=== PATIENT | female | born 1995 | race Caucasian/White ===

== ENCOUNTER → 2019-03-02 14:59 | Outpatient (CLI) | payer OTHER, MEDICAID, SELFPAY ==
[2019-03-02 15:33] LABS: Add Manual Diff / Slide Review NO; Basophils Absolute Auto 0 /uL (0-100); Basophils Percent Auto 0.4 % (0-2); Eosinophils Absolute Auto 100 /uL (0-450); Hematocrit 42.4 % (36-46); Hemoglobin 14.5 g/dL (12.0-16.0); Lymphocytes Absolute Auto 1500 /uL (1100-4500); Lymphocytes Percent Auto 24.2 % (25-40); Mean Corpuscular HGB Conc 34.2 % (30-36); Mean Corpuscular Hemoglobin 29.7 PG (26-34); Mean Corpuscular Volume 86.9 fL (80-100); Monocytes Absolute Auto 400 /uL (0-900); Neutrophils Absolute Auto 4200 /uL (1500-7000); Neutrophils Percent Auto 67.4 % (50-75); Platelet Count 197 X10^3/uL (150-400); Red Blood Cell Count 4.88 X10^6/uL (4.0-5.2); Red Cell Distribution Width 13.4 % (11.6-14.8); White Blood Cell Count 6.2 X10^3/uL (4.5-11.0)
[2019-03-02 15:46] LABS: Appearance Urine UA CLEAR; Bilirubin Urine UA NEGATIVE (NEGATIVE); Color Urine UA YELLOW; Glucose Urine UA NEGATIVE (Negative); Ketones Urine UA NEGATIVE (NEGATIVE); Leukocyte Esterase Urine UA NEGATIVE (NEGATIVE); Nitrite Urine UA NEGATIVE (Negative); Occult Blood Urine UA NEGATIVE (Negative); Protein Urine UA NEGATIVE (Negative); Urobilinogen Urine UA 0.2 E.U./dL (0.2)
[2019-03-02 17:00] LABS: Hepatitis B Surface Antigen NEGATIVE s/c (NEGATIVE); Rubella Antibody IgG 33.9 IU/mL (>15)
[2019-03-02 17:16] LABS: HIV 1 & 2 Ab/Ag 4th Gen Combo NEGATIVE (NEGATIVE); Hep C Virus Ab w/Reflex Quant NEGATIVE s/c (NEGATIVE)
[2019-03-05 23:41] LABS: RPR Screen Nonreactive (Nonreactive)
== END ==
PROVIDERS: Visit Provider Obstetrics & Gynecology
DX: Z34.91 Encounter for supervision of normal pregnancy, unspecified, first trimester (principal); Z3A.08 8 weeks gestation of pregnancy; R39.89 Other symptoms and signs involving the genitourinary system
CPT/HCPCS: 36415; 80055; 81003; 86787; 86803; 86850; 86900; 86901; 87389; 87480; 87510; 87660

== ENCOUNTER → 2019-04-20 11:30 | Outpatient (CLI) | payer OTHER, MEDICAID, SELFPAY ==
[2019-04-23 17:31] LABS: AFP, Serum 52.2 ng/mL; Brief History NTD NG; Calc Gestational Age 15.4; Cigarette Smoker NO; Donated Egg NO; Donor Egg Age NO; Estriol, Free 0.81 ng/mL; Inhibin A, Dimeric 178 pg/mL; Inhibin A, MoM 1.05; Maternal Weight 165 lbs; Number of Fetuses 1; Previous Pregnancy Down Syndro NO; hCG, MoM 0.99; hCG, Serum 36.6 IU/mL
== END ==
PROVIDERS: Visit Provider Obstetrics & Gynecology
DX: Z34.82 Encounter for supervision of other normal pregnancy, second trimester (principal)
CPT/HCPCS: 36415; 82105; 82677; 84702; 86336; 87077; 87086

== ENCOUNTER → 2019-05-30 12:23 | Outpatient (CLI) | payer OTHER, SELFPAY | PROVIDERS: Visit Provider Physician Assistant | DX: J02.9 Acute pharyngitis, unspecified (principal) | CPT/HCPCS: 87070; 87077; 87185 ==

== ENCOUNTER → 2019-05-31 11:31 | Outpatient (CLI) | payer OTHER, SELFPAY ==
--- NOTE | 2019-05-31 11:32 | DI.US.S_ITS ---
PROCEDURE: US OB >= 14 WEEKS FETUS INDICATIONS: 20 week anatomy scan OUTSIDE/PRIOR DATING DATA: Last menstrual period (LMP): Unknown. LMP-based estimated date of delivery (RANDI): Unknown. First dating scan (date and location): 03/02/19. Estimated date of delivery (RANDI) from first dating scan: 10/13/19. TECHNIQUE: Real-time scanning was performed of the fetus, with image documentation and biometric measurements. Endovaginal scanning: Not performed COMPARISON: [facility], , OB <= 14 WEEKS FETUS, 03/02/2019, 14:28. [facility], , OB >= 14 WEEKS FETUS, 04/20/2019, 11:10. FINDINGS: General: A single living intrauterine gestation is present. Presentation: Vertex. Placenta: Placental position is posterior, without previa. Amniotic fluid index: 18.7 cm, normal range is 5-24 cm. heart rate: 155 beats per minute. Maternal cervical canal: 3.9 cm long. Normal lower limit is 2.5 cm. biometrics: Biparietal diameter: 5.7 cm, 23 weeks 4 days Head circumference: 20.6 cm, 22 weeks 5 days Abdominal circumference: 17.1 cm, 22 weeks zero days Femur length: 3.8 cm, 22 weeks zero days Estimated gestational age from initial scan: 20 weeks 5 days Composite gestational age from present scan: 22 weeks 3 days Estimated weight and percentile: 480 g, 98th percentile Measurement variability for biometric dating: +/- 7 days from 14 weeks to 15 weeks 6 days gestation, +/- 10 days from 16 weeks to 21 weeks 6 days gestation, +/- 2 weeks from 22 weeks to 27 weeks 6 days gestation, +/- 3 weeks for 28 weeks gestation or later. weight reference: 4500 g or EFW >90/95% is considered macrosomia or large for gestational age. EFW <10% is small for gestational age. EFW 5% or less is considered intra-uterine growth restriction. Anatomic survey: Neuro: Ventricles are non-dilated at less than 10 mm. Cisterna magna is normal at 3-11 mm. Cerebellum is normal in size and morphology. Nuchal skin fold: Normal at less than 6 mm between 14-21 weeks gestational age. Face: Nose and lips, facial profile are normal. Spine: No evidence for spina bifida. Heart: 4-chambered heart is present, with normal ventricular outflow tracts. Diaphragm: Diaphragm is intact. Stomach: Left-sided stomach is present. Kidneys: No hydronephrosis. Normal is less than 5 mm in 2nd trimester, less than 7 mm in 3rd trimester. Cord: 3-vessel cord has orthotopic insertion. Bladder: Normal in size. Extremities: All 4 extremities identified. IMPRESSION: Single living intrauterine fetus in a vertex presentation demonstrating greater than expected interval growth. Estimated weight at the 98th percentile. If clinically warranted, continued growth assessment with followup 3-4 week ultrasound could be performed Normal anatomic survey Dictated by: Urban Whaley M.D. on 05/31/2019 at 13:37 Approved by: Urban Whaley M.D. on 05/31/2019 at 13:52
== END ==
PROVIDERS: Referring Provider Obstetrics & Gynecology; Visit Provider Obstetrics & Gynecology
DX: Z34.82 Encounter for supervision of other normal pregnancy, second trimester (principal); Z3A.22 22 weeks gestation of pregnancy
CPT/HCPCS: 76811

== ENCOUNTER → 2019-06-24 11:20 | Outpatient (CLI) | payer OTHER, SELFPAY ==
--- NOTE | 2019-06-24 11:22 | DI.US.S_ITS ---
PROCEDURE: US OB FOLLOW UP INDICATIONS: GROWTH CHECK, PLEASE ASSESS CORD INSERTION OUTSIDE/PRIOR DATING DATA: Last menstrual period (LMP): Unknown. LMP-based estimated date of delivery (RANDI): Unknown. First dating scan (date and location): 03/02/2019 [facility]. Estimated date of delivery (RANDI) from first dating scan: 10/13/2019. TECHNIQUE: Real-time scanning was performed of the fetus, with image documentation and biometric measurements. Endovaginal scanning: Not performed COMPARISON: [facility], OB >= 14 WEEKS FETUS, 05/31/2019, 11:40. FINDINGS: General: A single living intrauterine gestation is present. Presentation: Vertex. Placenta: Placental position is posterior, without previa. Amniotic fluid index: 20 cm, normal range is 5-24 cm. heart rate: 157 beats per minute. Maternal cervical canal: 3.9 cm long. Normal lower limit is 2.5 cm. biometrics: Biparietal diameter: 6.9 cm. 27 weeks 6 days. Head circumference: 25.3 cm. 27 weeks 3 days. Abdominal circumference: 22.4 cm. 26 weeks 6 days. Femur length: 4.8 cm. 26 weeks 1 day. Estimated gestational age from initial scan: 24 weeks 1 day Composite gestational age from present scan: 26 weeks 6 days Estimated weight and percentile: 966 g. Greater than 99th percentile. Measurement variability for biometric dating: +/- 7 days from 14 weeks to 15 weeks 6 days gestation, +/- 10 days from 16 weeks to 21 weeks 6 days gestation, +/- 2 weeks from 22 weeks to 27 weeks 6 days gestation, +/- 3 weeks for 28 weeks gestation or later. weight reference: 4500 g or EFW >90/95% is considered macrosomia or large for gestational age. EFW <10% is small for gestational age. EFW 5% or less is considered intra-uterine growth restriction. Other: Cord insertion is normal. IMPRESSION: 1. Andrea living intrauterine at 26 weeks 6 days based on today's ultrasound. This is greater than +/ -2 weeks variability compared to prior ultrasound and is disconcordant. There is interval growth. Fetus is greater than the 99th percentile for weight. 2. Normal placenta and amniotic fluid. 3. Cord insertion is normal. Dictated by: Rafael Tse M.D. on 06/24/2019 at 12:21 Approved by: Rafael Tse M.D. on 06/24/2019 at 12:39
== END ==
PROVIDERS: Referring Provider Obstetrics & Gynecology; Visit Provider Obstetrics & Gynecology
DX: O28.3 Abnormal ultrasonic finding on antenatal screening of mother (principal); Z3A.26 26 weeks gestation of pregnancy
CPT/HCPCS: 76816

== ENCOUNTER → 2019-07-08 08:34 | Outpatient (CLI) | payer OTHER, MEDICAID, SELFPAY ==
[2019-07-08 11:23] LABS: Hematocrit 31.8 % (36-46)
[2019-07-08 11:40] LABS: GTT (PREG) 1 Hour PP 50gm Dose 95 mg/dL (76-139)
== END ==
PROVIDERS: PCP Obstetrics & Gynecology; Referring Provider Obstetrics & Gynecology; Visit Provider Obstetrics & Gynecology
DX: Z34.82 Encounter for supervision of other normal pregnancy, second trimester (principal); Z3A.26 26 weeks gestation of pregnancy
CPT/HCPCS: 36415; 82950; 85014; 85018

== ENCOUNTER → 2019-07-15 14:50 | Outpatient (CLI) | payer OTHER, MEDICAID, SELFPAY ==
--- NOTE | 2019-07-15 14:52 | DI.US.S_ITS ---
PROCEDURE: OB LIMITED INDICATIONS: GROWTH CHECK OUTSIDE/PRIOR DATING DATA: Last menstrual period (LMP): Unknown. LMP-based estimated date of delivery (RANDI): Unknown. First dating scan (date and location): 03/02/2019 Estimated date of delivery (RANDI) from first dating scan: 10/13/2019. TECHNIQUE: Real-time scanning was performed of the fetus, with image documentation and biometric measurements. COMPARISON: [facility] OB FOLLOW UP, 06/24/2019, 11:36. [facility] OB >= 14 WEEKS FETUS, 05/31/2019, 11:40. [facility] OB >= 14 WEEKS FETUS, 04/20/2019, 11:10. [facility] OB <= 14 WEEKS FETUS, 03/02/2019, 14:28. FINDINGS: General: A single live intrauterine gestation is present. Presentation: Vertex. Placenta: Placental position is posterior, without previa. Amniotic fluid index: 20.3 cm, normal range is 5-24 cm. heart rate: 153 beats per minute. Maternal cervical canal: 4.8 cm long. Normal lower limit is 2.5 cm. biometrics: Biparietal diameter: 7.7 cm equals 31 weeks 0 days Head circumference: 28.4 cm equals 30 weeks 2 days Abdominal circumference: 26.2 cm equals 29 weeks 1 day Femur length: 5.5 cm equals 29 weeks 4 days Estimated gestational age from initial scan: 27 weeks 1 day Composite gestational age from present scan: 30 weeks 2 days Estimated weight and percentile: 1505 g, greater than 99 Measurement variability for biometric dating: +/- 7 days from 14 weeks to 15 weeks 6 days gestation, +/- 10 days from 16 weeks to 21 weeks 6 days gestation, +/- 2 weeks from 22 weeks to 27 weeks 6 days gestation, +/- 3 weeks for 28 weeks gestation or later. weight reference: 4500 g or EFW >90/95% is considered macrosomia or large for gestational age. EFW <10% is small for gestational age. EFW 5% or less is considered intra-uterine growth restriction. Other: Not applicable. IMPRESSION: The fetus is larger than expected for the estimated gestational age, and is at the greater than 99th percentile. Please correlate with potential development of shahbaz macrosomia. Dictated by: Israel Abarca M.D. on 07/15/2019 at 16:15 Approved by: Israel Abarca M.D. on 07/15/2019 at 16:18
== END ==
PROVIDERS: PCP Obstetrics & Gynecology; Referring Provider Obstetrics & Gynecology; Visit Provider Obstetrics & Gynecology
DX: O36.63X0 Maternal care for excessive fetal growth, third trimester, not applicable or unspecified (principal); Z3A.30 30 weeks gestation of pregnancy
CPT/HCPCS: 76815

== ENCOUNTER 2019-07-15 15:39 | Observation (INO) | payer OTHER, MEDICAID, SELFPAY ==
[2019-07-15 17:38] LABS: RBC Urine None Seen (0-5/HPF)
[2019-07-15 17:40] LABS: Appearance Urine UA CLEAR; Bilirubin Urine UA NEGATIVE (NEGATIVE); Color Urine UA YELLOW; Glucose Urine UA NEGATIVE (Negative); Ketones Urine UA NEGATIVE (NEGATIVE); Leukocyte Esterase Urine UA NEGATIVE (NEGATIVE); Nitrite Urine UA NEGATIVE (Negative); Occult Blood Urine UA NEGATIVE (Negative); Protein Urine UA NEGATIVE (Negative)
[2019-07-15 17:42] LABS: pH Urine UA 7.5 (4.5-8.0)
[2019-07-15 17:53] LABS: Amorphous Sediment Urine 2+; Bacteria Urine Few (2-10); Squamous Epithelial Cell Urine 1-5 /HPF (0-5/HPF); WBC Urine 1-5/HPF (0-5/HPF)
[2019-07-15 17:54] LABS: Culture Indicated Urine Cult Not Indicated
[2019-07-15 18:11] LABS: Fetal Fibronectin Negative
--- NOTE | 2019-07-15 18:37 | P.TNLD_ITS ---
Visit Information Visit Information Date of evaluation: 07/15/19 Primary OB Provider: Patrizia Quintanilla On-call OB Provider: Tory Fletcher Reason for Evaluation: Yes pre-term labor Comments/Additional reasons for admission: 23-year-old female presented due to feeling frequent contractions. She felt onset of occasional contraction yesterday, then last night had contractions every few minutes which were uncomfortable. She notice continued contractions today which were mild but frequent and came to be evaluated after her scheduled OB ultrasound today. She had an OB ultrasound for size greater than dates with last ultrasound showing LGA infant. Treated for yeast infection 2 weeks ago after antibiotics for sinus infection Review of systems: Reports twice had a small wet area on underwear twice today, ? Leakage of fluid. No vaginal itching, vaginal bleeding, dysuria, urinary urgency or increased frequency. Reports good movement. Vital Signs Vital Signs: Afebrile BP 112/63 pulse 81 [facility] Medical History (Updated 07/15/19 @ 19:06 by Tory Fletcher MD) Abnormal Pap smear of cervix (Inactive ~2017) Anxiety (Chronic ~2018) Depression (Chronic ~2018) Migraines (Chronic ~2018) Tachycardia (Acute ~2018) URI (upper respiratory infection) (Acute) Surgical History (Updated 03/08/19 @ 21:35 by Ivanna Jefferson) Hx of LASIK (Resolved ~10/2017) Family History (Updated 03/08/19 @ 21:40 by Ivanna Jefferson) Father Congenital heart defect Hypertension Mother Hypertension Brother Diabetes mellitus Grandfather Bone cancer Grandmother Cancer Grandfather Diabetes mellitus History of heart disease Hyperlipidemia Stroke Grandmother Diabetes mellitus History of heart disease Hyperlipidemia Hypertension Stroke Social History Smoking Status: Never smoker Exam Vital Signs (past 8 hours): Afebrile. BP 112/63. Pulse 81 Narrative Exam Narrative: General: Well-appearing female. Does not appear uncomfortable. Abdomen gravid, nontender Normal external genitalia, some yellowish watery discharge noted at the introitus. Speculum placed. Vagina with some watery yellow discharge, with some clumpy areas come suspicious for yeast. Sample taken for wet prep and for AmniSure Cervix visibly 0/along. fibronectin collected. Subsequent digital cervical exam confirms closed/long Wet prep by me showed +hyphae, no clue cells, no Trichomonas Ob growth ultrasound in Radiology today showed EFW 99%, ROSY 20. Cervix was greater than 4.8 cm Objective Labs Labs: Laboratory Results - last 24 hr 07/15/19 07/15/19 17:05 17:40 Urine Color Yellow Urine Appearance Clear Urine pH 7.5 Ur Specific [place] 1.010 Urine Protein Negative Urine Glucose (UA) Negative Urine Ketones Negative Urine Occult Blood Negative Urine Nitrate Negative Urine Bilirubin Negative Urine Urobilinogen 1.0 Ur Leukocyte Esterase Negative Urine RBC None seen Urine WBC 1-5/hpf Ur Squamous Epith Cells 1-5 /hpf Amorphous Sediment 2+ Urine Bacteria Few (2-10) H Ur Culture Indicated? Cult not indicated Fibronectin Negative Evaluation Evaluation Laboratory results: Laboratory Tests 07/15/19 07/15/19 17:05 17:40 Urine Color Yellow Urine Appearance Clear Urine pH 7.5 Ur Specific [place] 1.010 Urine Protein Negative Urine Glucose (UA) Negative Urine Ketones Negative Urine Occult Blood Negative Urine Nitrate Negative Urine Bilirubin Negative Urine Urobilinogen 1.0 Ur Leukocyte Esterase Negative Urine RBC None seen Urine WBC 1-5/hpf Ur Squamous Epith Cells 1-5 /hpf Amorphous Sediment 2+ Urine Bacteria Few (2-10) H Ur Culture Indicated? Cult not indicated Fibronectin Negative Diagnosis, Plan/Disposition Final Diagnosis (1) uterine contractions in second trimester, antepartum: Current Visit: Yes Status: Acute Problem details: contractions without evidence of labor. Contractions not treated since no cervical change and both cervical length and negative affect them are reassuring for likely no labor Urine sent for urine culture due to few bacteria seen, otherwise was negative Rx Terazol 3 for yeast Plan/Disposition Plan: Discharge home. Keep scheduled follow-up appointment in 4 days Instructed to call for regular stronger contractions, since current contractions are not causing cervical change for her. Other routine labor pr ecautions given. OB Disposition: home
== END 2019-07-15 18:55 | disposition home or self-care (01) ==
PROVIDERS: Obstetrics & Gynecology; Admitting Provider Obstetrics & Gynecology; PCP Obstetrics & Gynecology; Referring Provider Obstetrics & Gynecology; Visit Provider Obstetrics & Gynecology
DX: O47.02 False labor before 37 completed weeks of gestation, second trimester (principal); O36.63X0 Maternal care for excessive fetal growth, third trimester, not applicable or unspecified; N89.8 Other specified noninflammatory disorders of vagina; Z3A.27 27 weeks gestation of pregnancy
CPT/HCPCS: 59025; 59050; 76815; 81001; 82731; 84112; 87086; G0378; G0379

== ENCOUNTER 2019-08-09 14:03 | Inpatient (IN) | payer OTHER, MEDICAID, SELFPAY ==
[2019-08-09 14:16] VITALS: BP 118/70; PULSE 96; RESP 22; TEMP 36.4; O2SAT 100
--- NOTE | 2019-08-09 15:16 | PC.NURSE ---
sent by primary, [employer] to examine. will confer with primary, poss have ob come to evaluate
[2019-08-09 15:27] LABS: RBC Urine None Seen (0-5/HPF)
--- NOTE | 2019-08-09 15:32 | DI.RAD.S_ITS ---
PROCEDURE: XR CHEST 1V INDICATIONS: soa TECHNIQUE: One view of the chest was acquired. COMPARISON: None. FINDINGS: Surgical changes and devices: None. Lungs and pleura: Lungs are clear. No pleural effusions or pneumothorax. Mediastinum: Mediastinal contours appear normal. Heart size is normal. Bones and chest wall: No suspicious bony lesions. Overlying soft tissues appear unremarkable. IMPRESSION: Portable chest within normal limits. Dictated by: Israel Abarca M.D. on 08/09/2019 at 15:03 Approved by: Israel Abarca M.D. on 08/09/2019 at 15:04
--- NOTE | 2019-08-09 15:33 | PC.NURSE ---
abd shield for cxr
[2019-08-09 15:36] LABS: Amorphous Sediment Urine 2+; Bacteria Urine Few (2-10); Culture Indicated Urine Cult Not Indicated; Squamous Epithelial Cell Urine 0-1 /HPF (0-5/HPF); WBC Urine 0-1/HPF (0-5/HPF)
--- NOTE | 2019-08-09 16:16 | PC.NURSE ---
ob here to do non stress test.
[2019-08-09 16:26] VITALS: BP 106/60; PULSE 89; RESP 20; O2SAT 100
[2019-08-09 17:02] LABS: Add Manual Diff / Slide Review NO; Basophils Absolute Auto 0 /uL (0-100); Basophils Percent Auto 0.2 % (0-2); Eosinophils Absolute Auto 100 /uL (0-450); Eosinophils Percent Auto 0.7 % (2-4); Hemoglobin 11.5 g/dL (12.0-16.0); Lymphocytes Absolute Auto 1900 /uL (1100-4500); Lymphocytes Percent Auto 21.2 % (25-40); Mean Corpuscular HGB Conc 34.9 % (30-36); Mean Corpuscular Hemoglobin 29.5 PG (26-34); Mean Corpuscular Volume 84.7 fL (80-100); Monocytes Absolute Auto 500 /uL (0-900); Neutrophils Absolute Auto 6300 /uL (1500-7000); Neutrophils Percent Auto 71.9 % (50-75); Platelet Count 238 X10^3/uL (150-400); Red Cell Distribution Width 13.3 % (11.6-14.8); White Blood Cell Count 8.8 X10^3/uL (4.5-11.0)
[2019-08-09 17:14] LABS: INR 1.2 (0.9-1.3); Prothrombin Time 13.3 SECONDS (10.1-12.7)
[2019-08-09 17:17] LABS: PTT Partial Thromboplastin Tim 25 SECONDS (26.4-36.2)
[2019-08-09 17:29] LABS: Alanine Aminotransferase 10 IU/L (<35); Albumin 3.5 g/dL (3.5-5.0); Albumin Globulin Ratio 1.1 (1.0-2.8); Alkaline Phosphatase 97 U/L (38-126); Aspartate Aminotransferase 21 IU/L (14-36); Bilirubin Total 0.5 mg/dL (0.2-1.3); Blood Urea Nitrogen 4 mg/dL (7-17); Calcium 9.2 mg/dL (8.4-10.2); Carbon Dioxide 23 mmol/L (22-32); Chloride 106 mmol/L (98-107); Creatine Kinase 70 U/L (30-135); Estimated Glomerular Filt Rate > 60.0 mL/min (>60); Globulin 3.1 g/dL (1.7-4.1); Glucose 99 mg/dL (70-100); HEMOLYSIS < 15 (0-50); Lipase 61 U/L (23-300); Sodium 136 mmol/L (137-145); Total Protein 6.6 g/dL (6.3-8.2)
[2019-08-09 17:41] LABS: NT-proBNP (BNP-Adult 18+) 23 pg/mL (<125); Troponin I < 0.012 ng/mL (0.01-0.034)
[2019-08-09 17:56] LABS: Potassium 2.6 mmol/L (3.4-5.1)
[2019-08-09 18:16] LABS: Magnesium 1.7 mg/dL (1.6-2.3)
[2019-08-09] MEDS: KCL 20 MEQ IN NS 1,000 ML 500 MEQ IV (18:25)
[2019-08-09] MEDS: POTASSIUM CHLORIDE 20 MEQ TAB 40 MEQ PO (18:25)
--- NOTE | 2019-08-09 19:29 | ED.SOB ---
HPI - SOB/Dyspnea <ELISABETH Trimble - Last Filed: 08/09/19 23:48> General Chief Complaint: Shortness of Breath/Dyspnea Stated Complaint: Sent By Doctor To get Covid Testing. Time Seen by Provider: 08/09/19 14:09 Source: patient Mode of arrival: Ambulatory Limitations: no limitations History of Present Illness HPI Narrative: This is 23 year female, nonsmoker, who presents to ED with chief complain of short of breath for last several weeks which became worse last 1 week. Patient is currently 31 week her LMP which was 01/02/19 but there is a discrepancy of measurements per ultrasound as 34 week. She is without any complication during 1st . Patient reports she becomes easily lightheaded, dizzy, short of breath with mild exertion like doing the laundry and even during rest. She feels like is not getting enough air. Patient denies chest pain, fever, nausea, vomiting, diarrhea, history of blood clots. Patient has history of tachycardia and used to take metoprolol ordered 25 mg daily for this. Patient states her heart rate has been running in 90s without metoprolol or during this . Patient reports has been having mild discomfort in bilateral calf and bilateral lateral hip which has not been changed. She denies redness, warmth in her calf. Patient also reports history of hypoglycemia but her lightheadedness does not improve after drinking juice or soda. Patient also has a history of mitral valve regurgitation had echocardiogram study done during first-trimester with LVEF of 70% with normal valves. There was a trace mitral regurgitation, tricuspid regurgitation, and pulmonic insufficiency noted per test and Dr. Quintanilla, watch repairer, is aware. Patient denies cough, sore throat, headache, GI symptoms, known exposure to Covid 19, recent travel and she had her 3 year or son have been staying at home most of the time except doctor's appointments. Her works in ED days about 2 times a week and is not aware of exposure to COVID-19 and has been taking precautions when he arrives home. Patient has history of depression but currently is not taking medications due to . She also states she has been having contraction since 3 days ago which has stopped at this point. However, she noticed some clear and watery vaginal discharge this morning and low back pain which became worse after lunch time. She states this has been tough on her. She states her fetus is large for gestational age but no history of -induced diabetes or hypertension. She states her is 6ft 7 inch. Patient denies vaginal bleeding and has been feeling movements. Related Data Home Medications Medication Instructions Recorded Confirmed comb no.[id number]-folic acid 2 tab-cap PO BEDTIME 03/02/19 08/10/19 Previous Rx's Medication Instructions Recorded Double Electric breast Pump and #1 each 07/14/19 Supplies Allergies Allergy/AdvReac Type Severity Reaction Status Date / Time Sulfa (Sulfonamide Allergy Verified 07/01/19 10:50 Antibiotics) Review of Systems <Hipolito JakeELISABETH lyn - Last Filed: 08/09/19 23:48> Review of Systems Narrative: General: Denies fever, chills, (+) fatigue, malaise, sweats. HEENT: Denies sinus pain, ear pain, sore throat, difficulty swallowing, dizziness. Respiratory: See HPI Cardiovascular: Denies chest pain, palpitations, orthopnea, edema. Gastrointestinal: Denies nausea, vomiting, abdominal pain, diarrhea, constipation, melena. : Denies dysuria, frequency, incontinence, hematuria, urinary retention, (+) clear and white vaginal discharge. Musculoskeletal: Denies weakness, joint pain or bony pain, (+) back pain. Skin: Denies rash, skin lesions, or other. Neurologic: Denies weakness, headache, numbness, change in speech, confusion, seizures, incoordination. Psychiatric: No concerning psychosocial issues. 12-point review of systems is negative except for those stated above. Patient History <ELISABETH Trimble - Last Filed: 08/09/19 23:48> Medical History Abnormal Pap smear of cervix (Inactive ~2017) Anxiety (Chronic ~2018) Depression (Chronic ~2018) Migraines (Chronic ~2018) Tachycardia (Acute ~2018) URI (upper respiratory infection) (Acute) Surgical History Hx of LASIK (Resolved ~10/2017) Family History Father Congenital heart defect Hypertension Mother Hypertension Brother Diabetes mellitus Grandfather Bone cancer Grandmother Cancer Grandfather Diabetes mellitus History of heart disease Hyperlipidemia Stroke Grandmother Diabetes mellitus History of heart disease Hyperlipidemia Hypertension Stroke Social History household members: spouse and children Smoking Status: Never smoker alcohol intake: never Smoking Status: Never smoker Exam <ELISABETH Trimble - Last Filed: 08/09/19 23:48> Narrative Exam Narrative: GEN: Alert, oriented x 3, well appearing and nourished, and in no acute distress. Head: Normal cephalic, atraumatic. No scalp or temporal tenderness, palpable mass or rash. EYES: Pupils are equal, round, and reactive to light and accommodation. Extraocular muscles are intact bilaterally. There is no subconjunctival hemorrhage, exudate and sclera non-icteric. ENT: Hearing grossly intact. Nose without bleeding, purulent discharge or deviation. Mucous membrane moist, no mucosal lesion. Throat without erythema, tonsillar hypertrophy or exudate. Uvula in midline, airway patent. Neck: Trachea in midline. No JVD, non-tender without lymphadenopathy. No masses or thyroid megaly. Supple, non-tender and no meningeal signs. CARDIAC: Normal regular rate and rhythm without murmurs, gallops, or rubs. No chest wall tenderness. No peripheral edema, cyanosis or pallor. Capillary refill is less than 2 seconds. RESPIRATORY: Lungs are clear to auscultate bilaterally. No cough, wheezes, rales, or rhonchi. No stridor, respiratory distress, increase work of breathing, or accessary muscle used. O2 saturation in room air is 99-100%. ABD: Abdomen soft, nontender and non-distended. No guarding or rebound tenderness to palpate. Bowel sounds are normal in all 4 quadrants. There is no palpable masses or organomegaly. EXT: Full painless ROM of all extremities with no loss of sensation, strength, effusion or edema. SKIN: Warm, dry, normal color for patient. No erythema, lesions or rash over visible areas. BACK: Nontender without deformity or crepitance. No flank tenderness. NEUROLOGICAL: Alert and oriented to place, time and person. Sensation and motor function intact bilaterally. No facial droops, dysphasia. PSYCHIATRIC: Good judgement and reason, without hallucinations, abnormal affect or abnormal behaviors during the examination. Patient is not suicidal. Initial Vital Signs Initial Vital Signs: Vital Signs Temperature 97.5 F L 08/09/19 14:16 Pulse Rate 96 H 08/09/19 14:16 Respiratory Rate 22 08/09/19 14:16 Blood Pressure 118/70 08/09/19 14:16 Pulse Oximetry 100 08/09/19 14:16 <Saw Best MD - Last Filed: 08/10/19 08:23> Initial Vital Signs Initial Vital Signs: Vital Signs Temperature 97.5 F L 08/09/19 14:16 Pulse Rate 96 H 08/09/19 14:16 Respiratory Rate 22 08/09/19 14:16 Blood Pressure 118/70 08/09/19 14:16 Pulse Oximetry 100 08/09/19 14:16 Scores <ELISABETH Trimble - Last Filed: 08/09/19 23:48> GCS [place] coma scale eye opening: Spontaneous [place] coma scale verbal response: Orientated [place] coma scale motor response: Obey commands [place] coma scale total score: 15 HEART Score Heart Score history: Slightly Suspicious Heart Score EKG: Non-Specific repolarization disturbance Heart Score Age: < 45 years old Heart Score risk factors: 1-2 risk factors Heart Score troponin: < or = to normal limit Heart Score Total: 2 Wells' Criteria for PE Clinical signs and symptoms of DVT: No PE is #1 Dx or equally likely: No Heart rate > 100: No Immobilization at least 3 days or surg in previous 4 weeks: No History of PE or DVT: No Hemoptysis: No Malignancy w/Treatment within 6 months or palliative: No Wells' PE Score total: 0 Wells' Criteria for DVT Active Cancer (Treatment within 6 months): No Bedridden recently >3 days or major surgery within 4 weeks: No Calf Swelling >3cm compared to other leg: No Collateral (nonvericose) superficial veins present: No Entire leg swollen: No Localized tenderness along the deep vein system: Yes Pitting edema, confined to symtomatic leg: No Paralysis, paresis, or recent plaster immobilization of ext: No Previously documented DVT: No Alternative dx to DVT as likely or more likely: Yes Aida criteria for DVT: -1 Course <ELISABETH Trimble - Last Filed: 08/09/19 23:48> Orders Ordered: ED Orders 08/10/19 03:10 Osmolality Urine Stat 08/10/19 04:55 Basic Metabolic Panel Routine Osmolality, Serum Routine Heparin Sodium (Porcine) (Heparin) 5,000 unit SUBCUT BID RHONDA Potassium Chloride/Sodium Chloride (Ns With Kcl 20 Meq) 1,000 mls @ 500 mls/hr IV CONT RHONDA Last Infusion: 08/09/19 20:56 Dose: 0 mls/hr Documented by: Admin: 08/09/19 18:25 Dose: 500 mls/hr Documented by: JOMAR Naloxone HCl (Narcan) 0.2 mg IV Q2MIN PRN PRN Reason: Opiate Reversal Sodium Chloride (Normal Saline 0.9% Flush) 10 ml IV PRN PRN PRN Reason: Flush Sodium Chloride (Normal Saline 0.9% Flush) 10 ml IV BID RHONDA Discontinued Medications Potassium Chloride 80 meq/ (Sodium Chloride) 1,040 mls @ 130 mls/hr IV NOW ONE Stop: 08/10/19 05:56 Last Infusion: 08/10/19 06:51 Dose: 0 mls/hr Documented by: SANTY Cosigned by: RADHA Infusion: 08/10/19 00:13 Dose: 130 mls/hr Documented by: VIRGINIA Cosigned by: BRADEN Admin: 08/09/19 22:48 Dose: 130 mls/hr Documented by: LEXI Cosigned by: VIRGINIA Potassium Chloride 60 meq/ (Sodium Chloride) 530 mls @ 88.333 mls/hr IV NOW ONE Stop: 08/10/19 04:13 Last Admin: 08/09/19 23:44 Dose: Not Given Documented by: VIRGINIA Potassium Chloride (Klor-Con M20) 40 meq PO NOW ONE Stop: 08/09/19 18:01 Last Admin: 08/09/19 18:25 Dose: 40 meq Documented by: JOMAR Vital Signs Vital signs: Vital Signs - 8 hr 08/09/19 16:26 08/09/19 20:53 08/09/19 22:00 Pulse Rate 89 81 93 H Respiratory Rate 20 14 15 Blood Pressure [Left Arm] 106/60 110/71 121/76 Pulse Oximetry 100 98 <Saw Best MD - Last Filed: 08/10/19 08:23> Orders Ordered: ED Orders 08/10/19 03:10 Osmolality Urine Stat 08/10/19 04:55 Basic Metabolic Panel Routine Osmolality, Serum Routine Heparin Sodium (Porcine) (Heparin) 5,000 unit SUBCUT BID RHONDA Potassium Chloride/Sodium Chloride (Ns With Kcl 20 Meq) 1,000 mls @ 500 mls/hr IV CONT RHONDA Last Infusion: 08/09/19 20:56 Dose: 0 mls/hr Documented by: Admin: 08/09/19 18:25 Dose: 500 mls/hr Documented by: JOMAR Naloxone HCl (Narcan) 0.2 mg IV Q2MIN PRN PRN Reason: Opiate Reversal Sodium Chloride (Normal Saline 0.9% Flush) 10 ml IV PRN PRN PRN Reason: Flush Sodium Chloride (Normal Saline 0.9% Flush) 10 ml IV BID RHONDA Discontinued Medications Potassium Chloride 80 meq/ (Sodium Chloride) 1,040 mls @ 130 mls/hr IV NOW ONE Stop: 08/10/19 05:56 Last Infusion: 08/10/19 06:51 Dose: 0 mls/hr Documented by: SANTY Cosigned by: RADHA Infusion: 08/10/19 00:13 Dose: 130 mls/hr Documented by: VIRGINIA Cosigned by: BRADEN Admin: 08/09/19 22:48 Dose: 130 mls/hr Documented by: LEXI Cosigned by: VIRGINIA Potassium Chloride 60 meq/ (Sodium Chloride) 530 mls @ 88.333 mls/hr IV NOW ONE Stop: 08/10/19 04:13 Last Admin: 08/09/19 23:44 Dose: Not Given Documented by: VIRGINIA Potassium Chloride (Klor-Con M20) 40 meq PO NOW ONE Stop: 08/09/19 18:01 Last Admin: 08/09/19 18:25 Dose: 40 meq Documented by: JOMAR Vital Signs Vital signs: Vital Signs - 8 hr 08/09/19 16:26 08/09/19 20:53 08/09/19 22:00 Pulse Rate 89 81 93 H Respiratory Rate 20 14 15 Blood Pressure [Left Arm] 106/60 110/71 121/76 Pulse Oximetry 100 98 MDM - SOB/Dyspnea <Hipolito Xiao-ELISABETH Barnes - Last Filed: 08/09/19 23:48> Differential Diagnosis Differential diagnosis: Likely pulmonary embolism and other (Pneumonia, Covid 19, ) Medical Records Attestation: I reviewed the patient's medical records. Lab Data Attestation: I reviewed the patient's lab results. Result diagrams: 08/09/19 16:53 08/10/19 04:55 Labs: Lab Results 08/09/19 08/09/19 08/09/19 Range/Units 14:21 15:22 16:53 WBC 8.8 (4.5-11.0) X10^3/uL RBC 3.90 L (4.0-5.2) X10^6/uL Hgb 11.5 L (12.0-16.0) g/dL Hct 33.0 L (36-46) % MCV 84.7 (80-100) fL MCH 29.5 (26-34) PG MCHC 34.9 (30-36) % RDW 13.3 (11.6-14.8) % Plt Count 238 (150-400) X10^3/uL Neut % (Auto) 71.9 (50-75) % Lymph % (Auto) 21.2 L (25-40) % [place] % (Auto) 6.0 (3-14) % Eos % (Auto) 0.7 L (2-4) % Baso % (Auto) 0.2 (0-2) % Neut # (Auto) 6300 (0915-9985) /uL Lymph # (Auto) 1900 (0588-6525) /uL [place] # (Auto) 500 (0-900) /uL Eos # (Auto) 100 (0-450) /uL Baso # (Auto) 0 (0-100) /uL PT (10.1-12.7) SECONDS INR (0.9-1.3) APTT (26.4-36.2) SECONDS Sodium (137-145) mmol/L Potassium (3.4-5.1) mmol/L Chloride (98-107) mmol/L Carbon Dioxide (22-32) mmol/L BUN (7-17) mg/dL Creatinine (0.52-1.04) mg/dL Estimated GFR (>60) mL/min BUN/Creatinine Ratio (6-22) Glucose (70-100) mg/dL Calcium (8.4-10.2) mg/dL Magnesium (1.6-2.3) mg/dL Total Bilirubin (0.2-1.3) mg/dL AST (14-36) IU/L ALT (<35) IU/L Alkaline Phosphatase (38-126) U/L Lactate Dehydrogenase (313-618) U/L Total Creatine Kinase (30-135) U/L CK-MB (CK-2) CK-MB (CK-2) Rel Index Troponin I (0.01-0.034) ng/mL C-Reactive Protein (<1.0) mg/dL NT-Pro-B Natriuret Pep (<125) pg/mL Total Protein (6.3-8.2) g/dL Albumin (3.5-5.0) g/dL Globulin (1.7-4.1) g/dL Albumin/Globulin Ratio (1.0-2.8) Lipase (23-300) U/L Procalcitonin (<0.5) ng/mL Urine RBC None seen (0-5/HPF) Urine WBC 0-1/hpf (0-5/HPF) Ur Squamous Epith Cells 0-1 /hpf (0-5/HPF) Amorphous Sediment 2+ Urine Bacteria Few (2-10) H (None) Ur Culture Indicated? Cult not indicated COVID-19 PCR Cancelled 08/09/19 08/09/19 08/09/19 Range/Units 16:53 16:53 16:53 WBC (4.5-11.0) X10^3/uL RBC (4.0-5.2) X10^6/uL Hgb (12.0-16.0) g/dL Hct (36-46) % MCV (80-100) fL MCH (26-34) PG MCHC (30-36) % RDW (11.6-14.8) % Plt Count (150-400) X10^3/uL Neut % (Auto) (50-75) % Lymph % (Auto) (25-40) % [place] % (Auto) (3-14) % Eos % (Auto) (2-4) % Baso % (Auto) (0-2) % Neut # (Auto) (4238-4914) /uL Lymph # (Auto) (4990-9934) /uL [place] # (Auto) (0-900) /uL Eos # (Auto) (0-450) /uL Baso # (Auto) (0-100) /uL PT 13.3 H (10.1-12.7) SECONDS INR 1.2 (0.9-1.3) APTT 25 L (26.4-36.2) SECONDS Sodium 136 L (137-145) mmol/L Potassium 2.6 L* (3.4-5.1) mmol/L Chloride 106 (98-107) mmol/L Carbon Dioxide 23 (22-32) mmol/L BUN 4 L (7-17) mg/dL Creatinine 0.50 L (0.52-1.04) mg/dL Estimated GFR > 60.0 (>60) mL/min BUN/Creatinine Ratio 8.0 (6-22) Glucose 99 (70-100) mg/dL Calcium 9.2 (8.4-10.2) mg/dL Magnesium 1.7 (1.6-2.3) mg/dL Total Bilirubin 0.5 (0.2-1.3) mg/dL AST 21 (14-36) IU/L ALT 10 (<35) IU/L Alkaline Phosphatase 97 (38-126) U/L Lactate Dehydrogenase (313-618) U/L Total Creatine Kinase 70 (30-135) U/L CK-MB (CK-2) TNP CK-MB (CK-2) Rel Index TNP Troponin I < 0.012 (0.01-0.034) ng/mL C-Reactive Protein (<1.0) mg/dL NT-Pro-B Natriuret Pep 23 (<125) pg/mL Total Protein 6.6 (6.3-8.2) g/dL Albumin 3.5 (3.5-5.0) g/dL Globulin 3.1 (1.7-4.1) g/dL Albumin/Globulin Ratio 1.1 (1.0-2.8) Lipase 61 (23-300) U/L Procalcitonin (<0.5) ng/mL Urine RBC (0-5/HPF) Urine WBC (0-5/HPF) Ur Squamous Epith Cells (0-5/HPF) Amorphous Sediment Urine Bacteria (None) Ur Culture Indicated? COVID-19 PCR 08/09/19 08/09/19 08/09/19 Range/Units 21:00 21:00 21:00 WBC (4.5-11.0) X10^3/uL RBC (4.0-5.2) X10^6/uL Hgb (12.0-16.0) g/dL Hct (36-46) % MCV (80-100) fL MCH (26-34) PG MCHC (30-36) % RDW (11.6-14.8) % Plt Count (150-400) X10^3/uL Neut % (Auto) (50-75) % Lymph % (Auto) (25-40) % [place] % (Auto) (3-14) % Eos % (Auto) (2-4) % Baso % (Auto) (0-2) % Neut # (Auto) (1525-2966) /uL Lymph # (Auto) (6772-4558) /uL [place] # (Auto) (0-900) /uL Eos # (Auto) (0-450) /uL Baso # (Auto) (0-100) /uL PT (10.1-12.7) SECONDS INR (0.9-1.3) APTT (26.4-36.2) SECONDS Sodium 136 L (137-145) mmol/L Potassium 2.4 L* (3.4-5.1) mmol/L Chloride 108 H (98-107) mmol/L Carbon Dioxide 23 (22-32) mmol/L BUN 3 L (7-17) mg/dL Creatinine 0.52 (0.52-1.04) mg/dL Estimated GFR > 60.0 (>60) mL/min BUN/Creatinine Ratio 5.8 L (6-22) Glucose 118 H (70-100) mg/dL Calcium 8.7 (8.4-10.2) mg/dL Magnesium (1.6-2.3) mg/dL Total Bilirubin (0.2-1.3) mg/dL AST (14-36) IU/L ALT (<35) IU/L Alkaline Phosphatase (38-126) U/L Lactate Dehydrogenase 343 (313-618) U/L Total Creatine Kinase 64 (30-135) U/L CK-MB (CK-2) TNP CK-MB (CK-2) Rel Index TNP Troponin I < 0.012 (0.01-0.034) ng/mL C-Reactive Protein < 0.5 (<1.0) mg/dL NT-Pro-B Natriuret Pep (<125) pg/mL Total Protein (6.3-8.2) g/dL Albumin (3.5-5.0) g/dL Globulin (1.7-4.1) g/dL Albumin/Globulin Ratio (1.0-2.8) Lipase (23-300) U/L Procalcitonin < 0.05 (<0.5) ng/mL Urine RBC (0-5/HPF) Urine WBC (0-5/HPF) Ur Squamous Epith Cells (0-5/HPF) Amorphous Sediment Urine Bacteria (None) Ur Culture Indicated? COVID-19 PCR 08/09/19 Range/Units 22:09 WBC (4.5-11.0) X10^3/uL RBC (4.0-5.2) X10^6/uL Hgb (12.0-16.0) g/dL Hct (36-46) % MCV (80-100) fL MCH (26-34) PG MCHC (30-36) % RDW (11.6-14.8) % Plt Count (150-400) X10^3/uL Neut % (Auto) (50-75) % Lymph % (Auto) (25-40) % [place] % (Auto) (3-14) % Eos % (Auto) (2-4) % Baso % (Auto) (0-2) % Neut # (Auto) (4800-3822) /uL Lymph # (Auto) (8603-9802) /uL [place] # (Auto) (0-900) /uL Eos # (Auto) (0-450) /uL Baso # (Auto) (0-100) /uL PT (10.1-12.7) SECONDS INR (0.9-1.3) APTT (26.4-36.2) SECONDS Sodium (137-145) mmol/L Potassium (3.4-5.1) mmol/L Chloride (98-107) mmol/L Carbon Dioxide (22-32) mmol/L BUN (7-17) mg/dL Creatinine (0.52-1.04) mg/dL Estimated GFR (>60) mL/min BUN/Creatinine Ratio (6-22) Glucose (70-100) mg/dL Calcium (8.4-10.2) mg/dL Magnesium (1.6-2.3) mg/dL Total Bilirubin (0.2-1.3) mg/dL AST (14-36) IU/L ALT (<35) IU/L Alkaline Phosphatase (38-126) U/L Lactate Dehydrogenase (313-618) U/L Total Creatine Kinase (30-135) U/L CK-MB (CK-2) CK-MB (CK-2) Rel Index Troponin I (0.01-0.034) ng/mL C-Reactive Protein (<1.0) mg/dL NT-Pro-B Natriuret Pep (<125) pg/mL Total Protein (6.3-8.2) g/dL Albumin (3.5-5.0) g/dL Globulin (1.7-4.1) g/dL Albumin/Globulin Ratio (1.0-2.8) Lipase (23-300) U/L Procalcitonin (<0.5) ng/mL Urine RBC (0-5/HPF) Urine WBC (0-5/HPF) Ur Squamous Epith Cells (0-5/HPF) Amorphous Sediment Urine Bacteria (None) Ur Culture Indicated? COVID-19 PCR Negative Urine Dip Bedside Urine Glucose Negative Bedside Urine Bilirubin - Negative Bedside Urine Ketone + 15 Urine Specific [place] 1.010 Bedside Urine Occult Blood - Negative Bedside Urine pH 7.5 Bedside Urine Protein +/- 15 Bedside Urine Urobilinogen +/- 1mg Bedside Urine Nitrite - Negative Bedside Urine Leukocytes - Negative Esterase Imaging Data Chest x-ray: Radiologist's Impression: [address] [id number] XRay Report Signed Patient: Luciano Sanchez [facility]#: [id number] : 1995Acct:[id number] Age/Sex: 23 / FDate of Service: 08/09/19 Loc: ED Accession Number: [id number] Procedure: XR chest 1V Ordering Provider: Hipolito Rodriguez PROCEDURE: XR CHEST 1V INDICATIONS: soa TECHNIQUE: One view of the chest was acquired. COMPARISON: None. FINDINGS: Surgical changes and devices: None. Lungs and pleura: Lungs are clear. No pleural effusions or pneumothorax. Mediastinum: Mediastinal contours appear normal. Heart size is normal. Bones and chest wall: No suspicious bony lesions. Overlying soft tissues appear unremarkable. IMPRESSION: Portable chest within normal limits. Dictated by: Israel Abarca M.D. on 08/09/2019 at 15:03 Approved by: Israel Abarca M.D. on 08/09/2019 at 15:04 ECG Data Attestation: I personally reviewed and interpreted this ECG as follows: Prior ECG tracings: not available for review Interpretation: Sinus rhythm rate at 91. Normal [place]. TX interval 120, QRS duration 91, QT/QTC 355/403. Nonspecific ST and T-wave and normal T in Lead III and in all precordial leads. MDM Narrative Medical decision making narrative: This a 23 year old female, , with 31 week EGA (but LGA and measured as 34 week per US) presents to ED with short of breath during at rest and exertional, dizziness, fatigue after she was referred by Dr. Quintanilla for an evaluation for a short of breath and Covid test to avoid exposure of Covid in L&D. Patient denies fever, cough, sore throat, nausea, vomiting, diarrhea. She is not currently taking diuretics. Patient reports bilateral calf and bilateral hip pain but denies redness, swelling or warmth on affected site. Routine Covid swab is pending. One-view chest x-ray was obtained after shielding abdomen which shows no acute findings. Patient is afebrile, heart rate is in 80s to 90s with within normal blood pressure limits, room O2 sat of 99-100% without increased work of breathing while at rest during exam. Lungs sounds are clear to auscultate in all lobes. Wells PE score was 0, wells DVT score was -1, heart score was 2. Dr. Quintanilla was contacted by phone call informed the findings and plan to have patient follow-up with her on as scheduled as long as EKG and Nonstress tests are normal. Amni Sure ROM test was negative. FHT in 136 bmp and abdomen was soft to palpate. Nonstress test was conducted by L&D nurse at bedside with normal findings (4 acceleration in 20 minutes.) UA was negative for urine nitrites and leukocytes esterase. There was +/- of urine protein, urobilinogen and small amount of urine ketones. #1 EKG was obtained and indicates SR rate at [address] and T-wave abnormality (depression) in precordial leads and Lead II and III. Due to abnormal EKG, blood tests were ordered. No leukocytosis. H&H was 11.5/33.0 which is patient's near baseline. Chemistry test shows critically low potassium level of 2.6 with NA of 136, normal Mg level of 1.7, normal kidney function test and normal liver function test. #1 Troponin was negative. Normal proBNP. Replaced potassium with 20 mEq of IV and 40 mEq of oral potassium chloride. Potassium level was recheck it after this. Repeat K was 2.4 lower than initial potassium level with negative #2 Troponin. #2nd EKG shows SR rate at [address] depression. Contacted DOUG Flynn who is precision aircraft systems assembler for L&D for admission for hypokalemia and was referred to Dr. Choudhary who is back up precision aircraft systems assembler for L&D admission for Kcl replacement and monitoring potassium level in the morning. Dr. Moore was consulted for hypokalemia management and appreciate his consultation. Patient reports she drinks lots of water throughout the day with frequent urination. Sodium level is 136 and urinary frequency is likely due to 3rd trimester . Additional 80 mEQ of IV Kcl infusion ordered. Rapid Covid swab was obtained in preparation for patient's admission to L&D and additional Covid specific labs were added-CRP, procalcitonin, LDH which were all negative. Initial lymphocytes was 21.2 (25-40). Patient informed pending admission and lab findings and verbalized understanding and in agreement. <Saw Best MD - Last Filed: 08/10/19 08:23> Lab Data Labs: Lab Results 08/09/19 08/09/19 08/09/19 Range/Units 14:21 15:22 16:53 WBC 8.8 (4.5-11.0) X10^3/uL RBC 3.90 L (4.0-5.2) X10^6/uL Hgb 11.5 L (12.0-16.0) g/dL Hct 33.0 L (36-46) % MCV 84.7 (80-100) fL MCH 29.5 (26-34) PG MCHC 34.9 (30-36) % RDW 13.3 (11.6-14.8) % Plt Count 238 (150-400) X10^3/uL Neut % (Auto) 71.9 (50-75) % Lymph % (Auto) 21.2 L (25-40) % [place] % (Auto) 6.0 (3-14) % Eos % (Auto) 0.7 L (2-4) % Baso % (Auto) 0.2 (0-2) % Neut # (Auto) 6300 (7328-4944) /uL Lymph # (Auto) 1900 (2315-2309) /uL [place] # (Auto) 500 (0-900) /uL Eos # (Auto) 100 (0-450) /uL Baso # (Auto) 0 (0-100) /uL PT (10.1-12.7) SECONDS INR (0.9-1.3) APTT (26.4-36.2) SECONDS Sodium (137-145) mmol/L Potassium (3.4-5.1) mmol/L Chloride (98-107) mmol/L Carbon Dioxide (22-32) mmol/L BUN (7-17) mg/dL Creatinine (0.52-1.04) mg/dL Estimated GFR (>60) mL/min BUN/Creatinine Ratio (6-22) Glucose (70-100) mg/dL Calcium (8.4-10.2) mg/dL Magnesium (1.6-2.3) mg/dL Total Bilirubin (0.2-1.3) mg/dL AST (14-36) IU/L ALT (<35) IU/L Alkaline Phosphatase (38-126) U/L Lactate Dehydrogenase (313-618) U/L Total Creatine Kinase (30-135) U/L CK-MB (CK-2) CK-MB (CK-2) Rel Index Troponin I (0.01-0.034) ng/mL C-Reactive Protein (<1.0) mg/dL NT-Pro-B Natriuret Pep (<125) pg/mL Total Protein (6.3-8.2) g/dL Albumin (3.5-5.0) g/dL Globulin (1.7-4.1) g/dL Albumin/Globulin Ratio (1.0-2.8) Lipase (23-300) U/L Procalcitonin (<0.5) ng/mL Urine RBC None seen (0-5/HPF) Urine WBC 0-1/hpf (0-5/HPF) Ur Squamous Epith Cells 0-1 /hpf (0-5/HPF) Amorphous Sediment 2+ Urine Bacteria Few (2-10) H (None) Ur Culture Indicated? Cult not indicated COVID-19 PCR Cancelled 08/09/19 08/09/19 08/09/19 Range/Units 16:53 16:53 16:53 WBC (4.5-11.0) X10^3/uL RBC (4.0-5.2) X10^6/uL Hgb (12.0-16.0) g/dL Hct (36-46) % MCV (80-100) fL MCH (26-34) PG MCHC (30-36) % RDW (11.6-14.8) % Plt Count (150-400) X10^3/uL Neut % (Auto) (50-75) % Lymph % (Auto) (25-40) % [place] % (Auto) (3-14) % Eos % (Auto) (2-4) % Baso % (Auto) (0-2) % Neut # (Auto) (7037-6188) /uL Lymph # (Auto) (1247-1644) /uL [place] # (Auto) (0-900) /uL Eos # (Auto) (0-450) /uL Baso # (Auto) (0-100) /uL PT 13.3 H (10.1-12.7) SECONDS INR 1.2 (0.9-1.3) APTT 25 L (26.4-36.2) SECONDS Sodium 136 L (137-145) mmol/L Potassium 2.6 L* (3.4-5.1) mmol/L Chloride 106 (98-107) mmol/L Carbon Dioxide 23 (22-32) mmol/L BUN 4 L (7-17) mg/dL Creatinine 0.50 L (0.52-1.04) mg/dL Estimated GFR > 60.0 (>60) mL/min BUN/Creatinine Ratio 8.0 (6-22) Glucose 99 (70-100) mg/dL Calcium 9.2 (8.4-10.2) mg/dL Magnesium 1.7 (1.6-2.3) mg/dL Total Bilirubin 0.5 (0.2-1.3) mg/dL AST 21 (14-36) IU/L ALT 10 (<35) IU/L Alkaline Phosphatase 97 (38-126) U/L Lactate Dehydrogenase (313-618) U/L Total Creatine Kinase 70 (30-135) U/L CK-MB (CK-2) TNP CK-MB (CK-2) Rel Index TNP Troponin I < 0.012 (0.01-0.034) ng/mL C-Reactive Protein (<1.0) mg/dL NT-Pro-B Natriuret Pep 23 (<125) pg/mL Total Protein 6.6 (6.3-8.2) g/dL Albumin 3.5 (3.5-5.0) g/dL Globulin 3.1 (1.7-4.1) g/dL Albumin/Globulin Ratio 1.1 (1.0-2.8) Lipase 61 (23-300) U/L Procalcitonin (<0.5) ng/mL Urine RBC (0-5/HPF) Urine WBC (0-5/HPF) Ur Squamous Epith Cells (0-5/HPF) Amorphous Sediment Urine Bacteria (None) Ur Culture Indicated? COVID-19 PCR 08/09/19 08/09/19 08/09/19 Range/Units 21:00 21:00 21:00 WBC (4.5-11.0) X10^3/uL RBC (4.0-5.2) X10^6/uL Hgb (12.0-16.0) g/dL Hct (36-46) % MCV (80-100) fL MCH (26-34) PG MCHC (30-36) % RDW (11.6-14.8) % Plt Count (150-400) X10^3/uL Neut % (Auto) (50-75) % Lymph % (Auto) (25-40) % [place] % (Auto) (3-14) % Eos % (Auto) (2-4) % Baso % (Auto) (0-2) % Neut # (Auto) (8822-0968) /uL Lymph # (Auto) (5650-1951) /uL [place] # (Auto) (0-900) /uL Eos # (Auto) (0-450) /uL Baso # (Auto) (0-100) /uL PT (10.1-12.7) SECONDS INR (0.9-1.3) APTT (26.4-36.2) SECONDS Sodium 136 L (137-145) mmol/L Potassium 2.4 L* (3.4-5.1) mmol/L Chloride 108 H (98-107) mmol/L Carbon Dioxide 23 (22-32) mmol/L BUN 3 L (7-17) mg/dL Creatinine 0.52 (0.52-1.04) mg/dL Estimated GFR > 60.0 (>60) mL/min BUN/Creatinine Ratio 5.8 L (6-22) Glucose 118 H (70-100) mg/dL Calcium 8.7 (8.4-10.2) mg/dL Magnesium (1.6-2.3) mg/dL Total Bilirubin (0.2-1.3) mg/dL AST (14-36) IU/L ALT (<35) IU/L Alkaline Phosphatase (38-126) U/L Lactate Dehydrogenase 343 (313-618) U/L Total Creatine Kinase 64 (30-135) U/L CK-MB (CK-2) TNP CK-MB (CK-2) Rel Index TNP Troponin I < 0.012 (0.01-0.034) ng/mL C-Reactive Protein < 0.5 (<1.0) mg/dL NT-Pro-B Natriuret Pep (<125) pg/mL Total Protein (6.3-8.2) g/dL Albumin (3.5-5.0) g/dL Globulin (1.7-4.1) g/dL Albumin/Globulin Ratio (1.0-2.8) Lipase (23-300) U/L Procalcitonin < 0.05 (<0.5) ng/mL Urine RBC (0-5/HPF) Urine WBC (0-5/HPF) Ur Squamous Epith Cells (0-5/HPF) Amorphous Sediment Urine Bacteria (None) Ur Culture Indicated? COVID-19 PCR 08/09/19 Range/Units 22:09 WBC (4.5-11.0) X10^3/uL RBC (4.0-5.2) X10^6/uL Hgb (12.0-16.0) g/dL Hct (36-46) % MCV (80-100) fL MCH (26-34) PG MCHC (30-36) % RDW (11.6-14.8) % Plt Count (150-400) X10^3/uL Neut % (Auto) (50-75) % Lymph % (Auto) (25-40) % [place] % (Auto) (3-14) % Eos % (Auto) (2-4) % Baso % (Auto) (0-2) % Neut # (Auto) (6324-0272) /uL Lymph # (Auto) (5470-4014) /uL [place] # (Auto) (0-900) /uL Eos # (Auto) (0-450) /uL Baso # (Auto) (0-100) /uL PT (10.1-12.7) SECONDS INR (0.9-1.3) APTT (26.4-36.2) SECONDS Sodium (137-145) mmol/L Potassium (3.4-5.1) mmol/L Chloride (98-107) mmol/L Carbon Dioxide (22-32) mmol/L BUN (7-17) mg/dL Creatinine (0.52-1.04) mg/dL Estimated GFR (>60) mL/min BUN/Creatinine Ratio (6-22) Glucose (70-100) mg/dL Calcium (8.4-10.2) mg/dL Magnesium (1.6-2.3) mg/dL Total Bilirubin (0.2-1.3) mg/dL AST (14-36) IU/L ALT (<35) IU/L Alkaline Phosphatase (38-126) U/L Lactate Dehydrogenase (313-618) U/L Total Creatine Kinase (30-135) U/L CK-MB (CK-2) CK-MB (CK-2) Rel Index Troponin I (0.01-0.034) ng/mL C-Reactive Protein (<1.0) mg/dL NT-Pro-B Natriuret Pep (<125) pg/mL Total Protein (6.3-8.2) g/dL Albumin (3.5-5.0) g/dL Globulin (1.7-4.1) g/dL Albumin/Globulin Ratio (1.0-2.8) Lipase (23-300) U/L Procalcitonin (<0.5) ng/mL Urine RBC (0-5/HPF) Urine WBC (0-5/HPF) Ur Squamous Epith Cells (0-5/HPF) Amorphous Sediment Urine Bacteria (None) Ur Culture Indicated? COVID-19 PCR Negative Urine Dip Bedside Urine Glucose Negative Bedside Urine Bilirubin - Negative Bedside Urine Ketone + 15 Urine Specific [place] 1.010 Bedside Urine Occult Blood - Negative Bedside Urine pH 7.5 Bedside Urine Protein +/- 15 Bedside Urine Urobilinogen +/- 1mg Bedside Urine Nitrite - Negative Bedside Urine Leukocytes - Negative Esterase Discharge Plan Departure Patient Disposition: Admitted as Observation Clinical Impression: Hypokalemia, related conditions, unspecified, third trimester Dyspnea Qualifiers: Dyspnea type: unspecified Qualified Code(s): R06.00 - Dyspnea, unspecified Discharge Date/Time: 08/10/19 00:35 Referrals: Patrizia Quintanilla MD [Primary Care Provider] - Admit Date/Time: 08/09/19 23:41 Admit Provider: Anupam Kiran
[2019-08-09 20:53] VITALS: BP 110/71; PULSE 81; RESP 14
--- NOTE | 2019-08-09 20:55 | PC.NURSE ---
K infused, patient speaking on phone with spouse. Denies needs.
[2019-08-09 21:19] LABS: BUN Creatinine Ratio 5.8 (6-22); Blood Urea Nitrogen 3 mg/dL (7-17); Calcium 8.7 mg/dL (8.4-10.2); Carbon Dioxide 23 mmol/L (22-32); Chloride 108 mmol/L (98-107); Creatine Kinase 64 U/L (30-135); Estimated Glomerular Filt Rate > 60.0 mL/min (>60); Glucose 118 mg/dL (70-100); HEMOLYSIS < 15 (0-50); Sodium 136 mmol/L (137-145)
[2019-08-09 21:28] LABS: Potassium 2.4 mmol/L (3.4-5.1)
[2019-08-09 21:31] LABS: Troponin I < 0.012 ng/mL (0.01-0.034)
[2019-08-09 22:00] VITALS: BP 121/76; PULSE 93; RESP 15; O2SAT 98
[2019-08-09 22:11] LABS: Lactate Dehydrogenase 343 U/L (313-618)
[2019-08-09 22:12] LABS: C-Reactive Protein Quant < 0.5 mg/dL (<1.0)
--- NOTE | 2019-08-09 22:17 | PM.HP.1 ---
History of Present Illness History of Present Illness Date Patient Seen: 08/09/19 Time Patient Seen: 22:17 Chief complaint: Sent By Doctor To get Covid Testing. Narrative: This is a 23 year old female who is 31 weeks [address] to Dr. Quintanilla office today with Shortness of Breath so was sent to the ED for a workup and Covid testing. The rapid Covid test was negative but the EKG showed ST changes(depressed in the lateral leads) that prompted a K level that came back low at 2.6, so she was given 40 meq of PO Kcl and 20 meq of IV Kcl, with a follow up level of 2.4. There is no known cause of the low K as she has not had any GI symptoms or use of diuretics. An NST was done in the ED that was reportedly negative. She has had no contractions today. Dr. Kiran has been following her from the ED tonight and has requested a medical consult for management and workup of her Hypokalemia. 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 Sitting or resting relieves the shortness of breath. She had a history of tachycardia/mild Mitral Regurgitation and used to be on Metoprolol for that until earlier in this when she stopped taking it. She also describes an excessive thirst to the point of drinking 10 large bottles of water every day and having to urinate every 30 minutes as a result. She feels like she gets dehydrated if she doesn't drink that much. This habit was also present with a prior recently. She has never been tested for Diabetes Insipidus or Bartters syndrome that she is aware of. Patient History Medical History Abnormal Pap smear of cervix (Inactive ~2017) Anxiety (Chronic ~2018) Depression (Chronic ~2018) Migraines (Chronic ~2018) Tachycardia (Acute ~2018) URI (upper respiratory infection) (Acute) Surgical History Hx of LASIK (Resolved ~10/2017) Family & Social History Family History Father Congenital heart defect Hypertension Mother Hypertension Brother Diabetes mellitus Grandfather Bone cancer Grandmother Cancer Grandfather Diabetes mellitus History of heart disease Hyperlipidemia Stroke Grandmother Diabetes mellitus History of heart disease Hyperlipidemia Hypertension Stroke Tobacco & Substance use: Smoking Status Never smoker Meds Home Medications and Allergies Home Medications Medication Instructions Recorded Confirmed Type comb no.42-folic acid PO 03/02/19 07/01/19 History probiotic PO 03/02/19 07/01/19 History sertraline 25 mg tablet 25 mg PO DAILY #90 tab 06/14/19 07/01/19 Rx Double Electric breast Pump and #1 each 07/14/19 Rx Supplies terconazole 1 appful VAG BEDTIME 3 Days #20 07/15/19 Rx gram Allergies Allergy/AdvReac Type Severity Reaction Status Date / Time Sulfa (Sulfonamide Allergy Verified 07/01/19 10:50 Antibiotics) Review of Systems Review of Systems Narrative: Positive for shortness of breath, dyspnea on exertion, polydipsia and polyuria. Negative for chest pain, abdominal pain, nausea, vomiting, diarrhea, dysuria, seizures, rashes, joint pain, headaches, difficulty talking, difficulty walking, allergies. Exam Vital Signs (past 8 hours): - 08/09/19 16:26 08/09/19 20:53 08/09/19 22:00 Pulse Rate 89 81 93 H Respiratory Rate 20 14 15 Blood Pressure [Left Arm] 106/60 110/71 121/76 Pulse Oximetry 100 98 Oxygen Delivery Method Room Air Narrative Exam Narrative: She is alert and oriented x3 and in no apparent distress, resting comfortably on the emergency department [facility] without signs of any respiratory effort that is unusual. Pupils are equally round reactive to light and accommodation. Extraocular muscles are intact. Sclerae are pink and nonicteric. No lymph nodes are felt head, neck, supraclavicular area. There is no thyromegaly. There is no carotid bruits heard and JVD is less than 6 cm. Heart is regular rate and rhythm without murmur. Lungs are clear to auscultation bilaterally. Abdomen is soft, gravid, nontender, no organomegaly other than the uterus filling most of the abdomen. Extremities have no ankle edema. Neuro exam mild hyperreflexia symmetric without clonus. There is no tremor. Gait and balance are normal. Cranial nerves 2-12 test intact. Skin has no rash or jaundice. Objective ECG Impression: Two EKGs are reviewed that both show sinus tachycardia with varying levels of ST depression in the lateral leads. One of them shows less ST depression and is reportedly the 1 that was done after potassium was given. Imaging Chest x-ray: My impression: Borderline cardiomegaly with pulmonary haziness likely related to under penetration due to Radiologist's impression: PROCEDURE: XR CHEST 1V INDICATIONS: soa TECHNIQUE: One view of the chest was acquired. COMPARISON: None. FINDINGS: Surgical changes and devices: None. Lungs and pleura: Lungs are clear. No pleural effusions or pneumothorax. Mediastinum: Mediastinal contours appear normal. Heart size is normal. Bones and chest wall: No suspicious bony lesions. Overlying soft tissues appear unremarkable. IMPRESSION: Portable chest within normal limits. Dictated by: Israel Abarca M.D. Labs Result Diagrams: 08/09/19 16:53 08/09/19 21:00 Labs: Laboratory Results - last 24 hr 08/09/19 08/09/19 08/09/19 15:22 16:53 16:53 WBC 8.8 RBC 3.90 L Hgb 11.5 L Hct 33.0 L MCV 84.7 MCH 29.5 MCHC 34.9 RDW 13.3 Plt Count 238 Neut % (Auto) 71.9 Lymph % (Auto) 21.2 L [place] % (Auto) 6.0 Eos % (Auto) 0.7 L Baso % (Auto) 0.2 Neut # (Auto) 6300 Lymph # (Auto) 1900 [place] # (Auto) 500 Eos # (Auto) 100 Baso # (Auto) 0 PT 13.3 H INR 1.2 APTT 25 L Sodium Potassium Chloride Carbon Dioxide BUN Creatinine Estimated GFR BUN/Creatinine Ratio Glucose Calcium Magnesium Total Bilirubin AST ALT Alkaline Phosphatase Lactate Dehydrogenase Total Creatine Kinase CK-MB (CK-2) CK-MB (CK-2) Rel Index Troponin I C-Reactive Protein NT-Pro-B Natriuret Pep Total Protein Albumin Globulin Albumin/Globulin Ratio Lipase Urine RBC None seen Urine WBC 0-1/hpf Ur Squamous Epith Cells 0-1 /hpf Amorphous Sediment 2+ Urine Bacteria Few (2-10) H Ur Culture Indicated? Cult not indicated 08/09/19 08/09/19 08/09/19 16:53 16:53 21:00 WBC RBC Hgb Hct MCV MCH MCHC RDW Plt Count Neut % (Auto) Lymph % (Auto) [place] % (Auto) Eos % (Auto) Baso % (Auto) Neut # (Auto) Lymph # (Auto) [place] # (Auto) Eos # (Auto) Baso # (Auto) PT INR APTT Sodium 136 L 136 L Potassium 2.6 L* 2.4 L* Chloride 106 108 H Carbon Dioxide 23 23 BUN 4 L 3 L Creatinine 0.50 L 0.52 Estimated GFR > 60.0 > 60.0 BUN/Creatinine Ratio 8.0 5.8 L Glucose 99 118 H Calcium 9.2 8.7 Magnesium 1.7 Total Bilirubin 0.5 AST 21 ALT 10 Alkaline Phosphatase 97 Lactate Dehydrogenase Total Creatine Kinase 70 64 CK-MB (CK-2) TNP TNP CK-MB (CK-2) Rel Index TNP TNP Troponin I < 0.012 < 0.012 C-Reactive Protein NT-Pro-B Natriuret Pep 23 Total Protein 6.6 Albumin 3.5 Globulin 3.1 Albumin/Globulin Ratio 1.1 Lipase 61 Urine RBC Urine WBC Ur Squamous Epith Cells Amorphous Sediment Urine Bacteria Ur Culture Indicated? 08/09/19 21:00 WBC RBC Hgb Hct MCV MCH MCHC RDW Plt Count Neut % (Auto) Lymph % (Auto) [place] % (Auto) Eos % (Auto) Baso % (Auto) Neut # (Auto) Lymph # (Auto) [place] # (Auto) Eos # (Auto) Baso # (Auto) PT INR APTT Sodium Potassium Chloride Carbon Dioxide BUN Creatinine Estimated GFR BUN/Creatinine Ratio Glucose Calcium Magnesium Total Bilirubin AST ALT Alkaline Phosphatase Lactate Dehydrogenase 343 Total Creatine Kinase CK-MB (CK-2) CK-MB (CK-2) Rel Index Troponin I C-Reactive Protein < 0.5 NT-Pro-B Natriuret Pep Total Protein Albumin Globulin Albumin/Globulin Ratio Lipase Urine RBC Urine WBC Ur Squamous Epith Cells Amorphous Sediment Urine Bacteria Ur Culture Indicated? Assessment & Plan Assessment & Plan narrative: Shortness of Breath, present on admission, acute -COVID 19 rapid test is pending -CXR is read as negative -The Dyspnea with exertion component is suggestive of deconditioning or heart failure -The BNP is normal at 23. An Echocardiogram will also still be ordered -Serial Troponins are normal -EKG with ST segment depression probably caused by hypokalemia -check D-dimer Hypokalemia, present on admission, acute -K 2.6, followed by 2.4 after 40 meq PO and 20 meq IV in the ED 08/08. Next K am 08/09. -serum osmolality of 280 (normal range of 285 - 295) on admission, repeat 08/09 -Additional 80 meq IV Kcl ordered tonight and K will be followed -Likely a dilutional or renal response to excessive water intake of polydipsia -Rule out Diabetes Insipidus. A typical expected finding would be Hypernatremia. Doubt Bartter Syndrome. -measure urine osmolarity and consider fluid deprivation osmalality testing 31 week , present on admission, chronic -Followed by Dr. Kiran and Dr. Quintanilla with appropriate FHT monitoring while in the hospital on telemetry.
[2019-08-09 22:27] LABS: Procalcitonin < 0.05 ng/mL (<0.5)
[2019-08-09] MEDS: POTASSIUM CHLORIDE 80 MEQ in SODIUM CHLORIDE 0.9% 1,000 ML 130 ML IV (22:48)
[2019-08-09 23:39] LABS: COVID19 -Nasal RAPID Negative (Negative)
--- NOTE | 2019-08-10 | DI.US.S_ITS ---
PROCEDURE: US OB BIOPHYSICAL PROFILE INDICATIONS: HYPOKALEMIA OUTSIDE/PRIOR DATING DATA: Last menstrual period (LMP): Not available. LMP-based estimated date of delivery (RANDI): Not available. First dating scan (date and location): 03/02/20 ntatn [place]. Estimated date of delivery (RANDI) from first dating scan: 10/13/2019. TECHNIQUE: Real-time scanning was performed of the fetus, with image documentation and biometric measurements. Biophysical profile was also obtained. Endovaginal scanning: Not performed COMPARISON: [facility], OB FOLLOW UP, 06/24/2019, 11:36. [facility] OB >= 14 WEEKS FETUS, 05/31/2019, 11:40. [facility] OB >= 14 WEEKS FETUS, 04/20/2019, 11:10. [facility] OB <= 14 WEEKS FETUS, 03/02/2019, 14:28. [facility] OB LIMITED, 07/15/2019, 15:08. [facility] OB >= 14 WEEKS FETUS, 07/30/2019, 12:03. FINDINGS: General: A single living intrauterine gestation is present. Presentation: Vertex. Placenta: Placental position is posterior, without previa. Amniotic fluid index: 20.3 cm, normal range is 5-24 cm. heart rate: 141 beats per minute. Maternal cervical canal: C1 cm long. Normal lower limit is 2.5 cm. Biophysical profile: Tone: 2 points. Movement: 2 points. Respiration: 2 points. Largest pocket of fluid: 2 points. There is a amniotic band in the left upper quadrant. The left upper extremity appears to be extending beyond the band. The left upper extremities mobile. IMPRESSION: 1. A single living intrauterine gestation redemonstrated. 2. Normal biophysical profile. 3. There is a amniotic band in the left upper quadrant. The left upper extremity appears to be extending beyond the band. The left upper extremities mobile. Recommend imaging followup. Dictated by: Dhiraj Doe M.D. on 08/10/2019 at 11:50 Approved by: Dhiraj Doe M.D. on 08/10/2019 at 11:57
[2019-08-10 00:25] VITALS: BP 115/73; PULSE 80; RESP 18; TEMP 36.2; O2SAT 98
[2019-08-10 00:28] VITALS: BMI 28.8
--- NOTE | 2019-08-10 01:27 | PC.ADMIT ---
[email or web address] Admission Note: The patient,Quincy Sanchez,23 y/o, was given written information regarding hospital policies, unit procedures and contact persons. Patient's smoking status: Never smoker. Vital Signs - 8 hr 08/09/19 20:53 08/09/19 22:00 08/10/19 00:25 Temperature 97.2 F L Pulse Rate 81 93 H 80 Respiratory Rate 14 15 18 Blood Pressure 115/73 Blood Pressure [Left Arm] 110/71 121/76 Pulse Oximetry 98 98 Patient arrived via stretcher accompanied by ED RN, transferred self to bed with no difficulties. AxOx3, can make needs known. C/o SOB at rest and with ambulation that can cause dizziness but at time of assessment was not experiencing dizziness. Lung sounds clear and on RA. Large abdomen, can feel movements externally at assessment, bowel tones active with no c/o nausea/vomiting. Moderate fall risk due to weakness, bed alarm on and functioning, call light purpose and function explained and acknowledged within reach.
[2019-08-10 05:00] VITALS: BP 110/61; PULSE 86; RESP 18; TEMP 36.4; O2SAT 100
[2019-08-10 05:45] LABS: BUN Creatinine Ratio 6.4 (6-22); Blood Urea Nitrogen 3 mg/dL (7-17); Calcium 8.4 mg/dL (8.4-10.2); Carbon Dioxide 21 mmol/L (22-32); Chloride 112 mmol/L (98-107); Estimated Glomerular Filt Rate > 60.0 mL/min (>60); Glucose 79 mg/dL (70-100); HEMOLYSIS 18 (0-50); Potassium 3.3 mmol/L (3.4-5.1); Sodium 139 mmol/L (137-145)
--- NOTE | 2019-08-10 10:14 | P.PN_ITS ---
Subjective Subjective Date Patient Seen: 08/10/19 Time Patient Seen: 09:45 Interval history: This patient is a 23yo @31+3 by 1st trimester ultrasound, admitted to the hospital with SOB, fatigue, and unexplained hypokalemia. She reports that a few weeks ago, she began noticing some SOB with activity and insidiously increasing fatigue. For the past week, she's noticed that she's struggled to complete ADLs, with fatigue keeping her from getting out of bed and shortness of breath occasionally even at rest. She reports that she drinks a lot of water to stay hydrated after a few episodes of contractions, but has not measured the amount. She denies return of her palpitations, chest pain, MCMAHON, visual changes, fevers, chills, nausea, vomiting, diarrhea, or UTI symptoms. She had episodes of contractions last week that were in the setting of significant activity and have not recurred, and reports normal movement, no LOF, and no VB. The patient was concerned about increased physiologic vaginal discharge yesterday, which is what led her to call the office. During the course of that phone call, she was audibly short of breath while describing her discharge, and was directed to proceed to the ED for further evaluation. The patient reports that she has had episodes of profound fatigue early in her and prior to this . She has a history of heart arrhythmia for which she was on metoprolol prior to this , and se lf-discontinued prior to her first OB visit. She spent a large part of her early in [place], but was instructed to see a greeting card editor there and have an echocardiogram. The echocardiogram revealed no abnormalities, and though records are not available, the patient reports that she was told by the greeting card editor that everything is fine. She has had a otherwise complicated by borderline macrosomia with no signs of gestational diabetes, but otherwise normal testing. She has a history of prior vaginal delivery, and a history of depression for which she self-dc'ed an SSRI prior to presenting for care in this . Exam Vital Signs (past 8 hours): - 08/10/19 05:00 Temperature 97.5 F L Pulse Rate 86 Respiratory Rate 18 Blood Pressure 110/61 Pulse Oximetry 100 Oxygen Delivery Method Room Air Oxygen Flow Rate 0 Const General: cooperative, healthy appearing and comfortable Other: Reports symptoms still present this AM though signifcantly improved. Able to speak in complete sentences this AM. Eyes General: appearance normal, both eyes and all related structures GI Palpation: soft and No tender Other: doppler performed, FHR 136. Palpable movement. Skin General: no rashes or lesions noted Objective Labs Result Diagrams: 08/09/19 16:53 08/10/19 04:55 Labs: Laboratory Results - last 24 hr 08/09/19 08/09/19 08/09/19 14:21 15:22 16:53 WBC 8.8 RBC 3.90 L Hgb 11.5 L Hct 33.0 L MCV 84.7 MCH 29.5 MCHC 34.9 RDW 13.3 Plt Count 238 Neut % (Auto) 71.9 Lymph % (Auto) 21.2 L [place] % (Auto) 6.0 Eos % (Auto) 0.7 L Baso % (Auto) 0.2 Neut # (Auto) 6300 Lymph # (Auto) 1900 [place] # (Auto) 500 Eos # (Auto) 100 Baso # (Auto) 0 PT INR APTT Sodium Potassium Chloride Carbon Dioxide BUN Creatinine Estimated GFR BUN/Creatinine Ratio Glucose Calcium Magnesium Total Bilirubin AST ALT Alkaline Phosphatase Lactate Dehydrogenase Total Creatine Kinase CK-MB (CK-2) CK-MB (CK-2) Rel Index Troponin I C-Reactive Protein NT-Pro-B Natriuret Pep Total Protein Albumin Globulin Albumin/Globulin Ratio Lipase Procalcitonin Urine RBC None seen Urine WBC 0-1/hpf Ur Squamous Epith Cells 0-1 /hpf Amorphous Sediment 2+ Urine Bacteria Few (2-10) H Ur Culture Indicated? Cult not indicated COVID-19 PCR Cancelled 08/09/19 08/09/19 08/09/19 16:53 16:53 16:53 WBC RBC Hgb Hct MCV MCH MCHC RDW Plt Count Neut % (Auto) Lymph % (Auto) [place] % (Auto) Eos % (Auto) Baso % (Auto) Neut # (Auto) Lymph # (Auto) [place] # (Auto) Eos # (Auto) Baso # (Auto) PT 13.3 H INR 1.2 APTT 25 L Sodium 136 L Potassium 2.6 L* Chloride 106 Carbon Dioxide 23 BUN 4 L Creatinine 0.50 L Estimated GFR > 60.0 BUN/Creatinine Ratio 8.0 Glucose 99 Calcium 9.2 Magnesium 1.7 Total Bilirubin 0.5 AST 21 ALT 10 Alkaline Phosphatase 97 Lactate Dehydrogenase Total Creatine Kinase 70 CK-MB (CK-2) TNP CK-MB (CK-2) Rel Index TNP Troponin I < 0.012 C-Reactive Protein NT-Pro-B Natriuret Pep 23 Total Protein 6.6 Albumin 3.5 Globulin 3.1 Albumin/Globulin Ratio 1.1 Lipase 61 Procalcitonin Urine RBC Urine WBC Ur Squamous Epith Cells Amorphous Sediment Urine Bacteria Ur Culture Indicated? COVID-19 PCR 08/09/19 08/09/19 08/09/19 21:00 21:00 21:00 WBC RBC Hgb Hct MCV MCH MCHC RDW Plt Count Neut % (Auto) Lymph % (Auto) [place] % (Auto) Eos % (Auto) Baso % (Auto) Neut # (Auto) Lymph # (Auto) [place] # (Auto) Eos # (Auto) Baso # (Auto) PT INR APTT Sodium 136 L Potassium 2.4 L* Chloride 108 H Carbon Dioxide 23 BUN 3 L Creatinine 0.52 Estimated GFR > 60.0 BUN/Creatinine Ratio 5.8 L Glucose 118 H Calcium 8.7 Magnesium Total Bilirubin AST ALT Alkaline Phosphatase Lactate Dehydrogenase 343 Total Creatine Kinase 64 CK-MB (CK-2) TNP CK-MB (CK-2) Rel Index TNP Troponin I < 0.012 C-Reactive Protein < 0.5 NT-Pro-B Natriuret Pep Total Protein Albumin Globulin Albumin/Globulin Ratio Lipase Procalcitonin < 0.05 Urine RBC Urine WBC Ur Squamous Epith Cells Amorphous Sediment Urine Bacteria Ur Culture Indicated? COVID-19 PCR 08/09/19 08/10/19 22:09 04:55 WBC RBC Hgb Hct MCV MCH MCHC RDW Plt Count Neut % (Auto) Lymph % (Auto) [place] % (Auto) Eos % (Auto) Baso % (Auto) Neut # (Auto) Lymph # (Auto) [place] # (Auto) Eos # (Auto) Baso # (Auto) PT INR APTT Sodium 139 Potassium 3.3 L Chloride 112 H Carbon Dioxide 21 L BUN 3 L Creatinine 0.47 L Estimated GFR > 60.0 BUN/Creatinine Ratio 6.4 Glucose 79 Calcium 8.4 Magnesium Total Bilirubin AST ALT Alkaline Phosphatase Lactate Dehydrogenase Total Creatine Kinase CK-MB (CK-2) CK-MB (CK-2) Rel Index Troponin I C-Reactive Protein NT-Pro-B Natriuret Pep Total Protein Albumin Globulin Albumin/Globulin Ratio Lipase Procalcitonin Urine RBC Urine WBC Ur Squamous Epith Cells Amorphous Sediment Urine Bacteria Ur Culture Indicated? COVID-19 PCR Negative Assessment & Plan Assessment and plan (1) Dyspnea: Problem details: This patient has new onset dyspnea and fatigue in the setting of hypokalemia, with insidious onset over several weeks and prior episodes of unexplained tachycardia and fatigue early in and prior to her . - Patient for CTA today to evaluate for PE. Discussed with Dr. Montanez, concern for PE in the setting of and persistent dyspnea warrants small risk of CT in , as consistent with ACOG guidelines. - Workup for hypokalemia ongoing. Appreciate hospitalist service management of this presenting complaint, OB will continue to follow closely. Qualifiers: Dyspnea type: unspecified Qualified Code(s): R06.00 - Dyspnea, unspecified Current visit: Yes Status: Acute (2) related conditions, unspecified, third trimester: Problem details: - Patient had reassuring status on NST yesterday, patient has no obstetric complaints. Will obtain BPP today to assess fluid status and wellbeing, continue doppler FHR evaluation during rounds, and discussed daily NSTs starting tomorrow as patient remains in house. - vitamins can be held given electrolyte repletion during admission - OB will continue to follow closely Current visit: Yes Status: Acute Quality VTE Deep Vein Thrombosis/Pulmonary Embolism Present on Admission: No
--- NOTE | 2019-08-10 10:14 | DI.CT.S_ITS ---
PROCEDURE: CT ANGIO CHEST PE PROTOCOL INDICATIONS: Chest pain. Short of breath. TECHNIQUE: After the administration of intravenous contrast, 2 mm thick sections acquired from the pulmonary apices to the posterior costophrenic angles. 3-dimensional maximum intensity projection (MIP) coronal and sagittal reformats were then acquired through the thorax. For radiation dose reduction, the following was used: automated exposure control, adjustment of mA and/or kV according to patient size. I discussed the patient with Dr. Montanez in regarding radiation exposure to this woman. COMPARISON: None. FINDINGS: Image quality: Excellent. Pulmonary arteries: Pulmonary arteries are normal in size, and demonstrate no intraluminal filling defects to suggest central pulmonary embolism. Lungs and pleura: Lungs are clear. No pleural effusions or pneumothorax. Central and peripheral airways are patent. Mediastinum: Heart size is normal, without pericardial effusion. No mediastinal or hilar adenopathy. Thoracic aorta is normal in caliber and enhancement. Esophagus is normal in caliber, without hiatal hernia. Bones and chest wall: No suspicious bony lesions. Ribs and thoracic spine appear intact throughout. Thyroid gland is normal. No axillary or supraclavicular adenopathy. Abdomen: Visualized upper abdominal solid organs appear normal in the early arterial phase of enhancement. IMPRESSION: No CT findings to suggest pulmonary embolism. Dictated by: Dhiraj Doe M.D. on 08/10/2019 at 11:07 Approved by: Dhiraj Doe M.D. on 08/10/2019 at 11:10
[2019-08-10 10:26] VITALS: BP 112/70; PULSE 96; RESP 17; TEMP 37.1; O2SAT 99
--- NOTE | 2019-08-10 10:37 | CM.DANOTE ---
D/C Assessment: Reviewed chart. Patient is a 23yr old female admitted to from provider's office with SOB. PCP listed is Dr. Quintanilla. Primary payor is 1)[facility] 2)[facility]. Met with patient explained CM/SW role. Patient marilou 31wks with second child. Patient reports that she resides in [place] with spouse/Nahid and 3yr old. Patient's spouse is in the , patient reports that she got and in fall/winter of last year moved to [place] from [place]. Patient hopes to return to [place] once her spouse is out of the or after the of . Patient reports spouse is currently home and she does not anticipate any d/c planning needs. P: Home when stable. PRAVEEN Beltran Discharge Planning/Care Management CM Discharge Assessment Start: 08/10/19 09:28 Freq: Status: Active Protocol: Document 08/10/19 10:19 KJS (Rec: 08/10/19 10:34 KJS [id number]) Discharge Planning Assessment Assigned Sales Compensation Analyst PRAVEEN Beltran DPOA/Assigned Designee Name Nahid Sanchez (spouse) Advance Directives? No History Provided By Patient,Medical Record Has Patient been admitted in last 30 No days? Prior Living Arrangements House Household Members spouse,significant other, children Type of transporation used prior to Drives own vehicle admit Independent with ADL's Yes Is patient alert and oriented? Yes Caregiver for Another Yes: Has 3yr old son Barriers to Discharge No Discharge Plan Home Transportation Arrangement Family will provide transportation home. Whiteboard Updated in Patient Room with Yes name and ext. # of Sales Compensation Analyst Review Status In Process Next Review Type Continued Stay Review Document 08/10/19 10:37 KJS (Rec: 08/10/19 10:37 KJS [id number]) Discharge Planning Assessment Assigned Sales Compensation Analyst PRAVEEN Beltran DPOA/Assigned Designee Name Nahid Sanchez (spouse) Advance Directives? No History Provided By Patient,Medical Record Has Patient been admitted in last 30 No days? Prior Living Arrangements House Household Members spouse,significant other, children Type of transporation used prior to Drives own vehicle admit Independent with ADL's Yes Is patient alert and oriented? Yes Caregiver for Another Yes: Has 3yr old son Barriers to Discharge No Discharge Plan Home Transportation Arrangement Family will provide transportation home. Whiteboard Updated in Patient Room with Yes name and ext. # of Sales Compensation Analyst Review Status In Process Next Review Type Continued Stay Review
--- NOTE | 2019-08-10 10:53 | PC.NURSE ---
Addendum entered by Andreia Martinez R.N. 08/10/19 13:02: Patient had her ultrasound completed. Mag rider infusing at this time. Original Note: PATIENT OFF OF UNIT FOR CTA. DISCUSSED HEPARIN SUBQ WITH DR. REHMAN AND DR. DELCID. INSTRUCTED BY MD TO WAIT UNTIL RESULT OF CTA TO GIVE HEPARIN DUE TO POSSIBILITY OF DOSE ADJUSTMENT.
[2019-08-10] MEDS: HEPARIN 5,000 UNIT/ML VIAL 5000 UNIT SUBCUT ×2 (11:26→20:50)
[2019-08-10] MEDS: POTASSIUM CHLORIDE 20 MEQ TAB 40 MEQ PO ×3 (11:26→21:43)
[2019-08-10] MEDS: SODIUM CHLORIDE 0.9% FLUSH 10 ML IV ×2 (11:27→20:50)
[2019-08-10 11:57] LABS: Magnesium 1.5 mg/dL (1.6-2.3)
[2019-08-10] MEDS: MAGNESIUM SULFATE 2 GM/50 ML PIGGYBACK IV (12:14)
[2019-08-10 12:28] LABS: Thyroid Stimulating Hormone 2.42 uIU/mL (0.47-4.68)
--- NOTE | 2019-08-10 14:59 | DI.ECHO.S_ITS ---
[facility]---------+ [facility] +---------+ : : [address] : : : : [id number] : : : : Phone: [phone] Echocardiogram Report + + :Name: MINH JORDAN Study Date: 08/11/2019 Height: 65 in : :[facility] Weight: 173 lb : : Gender: Female BSA: 1.9 m2 : :: 1995 Age: 23 yrs BP: 110/60 mmHg: :Reason For Study: cardiomyopathy : :Ordering Physician: Gloria : :Hospitalist Performed By: Jackie Horton : :Referring: DEA REHMAN : + + Interpretation Summary The left ventricle is normal in size, wall thickness, and systolic function without any focal wall motion abnormalities with the ejection fraction visually estimated to be 55-60%. Diastolic parameters suggest probable normal left ventricular diastolic function and normal filling pressures. The right ventricle is normal in size and function. Pulmonary artery pressures cannot be estimated because of the lack of a measurable TR jet velocity but the IVC suggests a CVP of around 3 mmHg. Both atria are normal in size. There is no significant valvular heart disease. The echocardiogram is within normal limits. Procedure: A two-dimensional transthoracic echocardiogram with color flow and Doppler was performed. The study quality was technically adequate. There is no prior echocardiogram noted for this patient. The patient was in normal sinus rhythm during the exam. Patient is 31 weeks . Left Ventricle: The left ventricle is normal in size, wall thickness, and systolic function without any focal wall motion abnormalities. The ejection fraction is estimated to be 55-60%. Diastolic parameters suggest probable normal left ventricular diastolic function and normal filling pressures. Right Ventricle: The right ventricle is normal in size and function. Atria: Both atria are normal in size. The interatrial septum is intact with no evidence for an atrial septal defect. There is no Doppler evidence for an interatrial shunt. Mitral Valve: The mitral valve is normal in structure and function. There is no mitral regurgitation noted. Aortic Valve: The aortic valve is trileaflet. The aortic valve opens well. There is no aortic valve stenosis. No aortic regurgitation is present. Tricuspid Valve: The tricuspid valve is normal in structure and function. There is trace tricuspid regurgitation. Pulmonary artery pressures cannot be estimated because of the lack of a measurable TR jet velocity but the IVC suggests a CVP of around 3 mmHg. Pulmonic Valve: The pulmonic valve is normal in structure and function. There is a trace or physiologic amount of pulmonic regurgitation. There is no significant valvular heart disease. Great Vessels: The aortic root is normal size. The ascending aorta is normal in size. The IVC is of normal diameter and collapses greater than 50% with a sniff. This suggests a low right atrial pressure of 3 mm Hg. Pericardium/ Pleura There is no pericardial effusion. There is no pleural effusion. MMode/2D Measurements & Calculations LVIDd: 4.5 cm LVOT diam: 1.9 cm LVIDs: 2.9 cm Ao root diam: 2.6 cm FS: 33.8 % asc Aorta Diam: 2.5 cm EPSS: 0.43 cm Ao Arch Diam (Prox Trans): 2.3 cm IVSd: 0.70 cm LVPWd: 0.75 cm LV uribe. diameter/BSA (cm/m^2): 2.4 LV sys. diameter/BSA (cm/m^2): 1.6 LA A2 area: 19.5 cm2 RA long axis: 4.6 cm LA A4 area: 14.5 cm2 RA area: 13.5 cm2 LA length (vol): 4.9 cm RA vol: 33.4 ml LA vol: 48.5 ml RA : 18.0 ml/m2 LA vol index: 26.1 ml/m2 IVC diam: 0.63 cm RVD1 (basal): 3.1 cm TAPSE: 2.5 cm Doppler Measurements & Calculations Ao V2 max: 134.1 cm/sec LVOT Max Vishnu: 104.2 cm/sec Ao V2 mean: 83.0 cm/sec LV V1 max P.3 mmHg Ao max P.2 mmHg LV V1 VTI: 21.6 cm Ao mean P.3 mmHg SHANTE(I,D): 2.4 cm2 Ao V2 VTI: 26.2 cm SHANTE(V,D): 2.3 cm2 sev ratio: 0.82 SHANTE indexed to BSA (cm^2/m^2): 1.3 MV E max vishnu: 60.7 cm/sec PA V2 max: 83.3 cm/sec MV A max vishnu: 48.9 cm/sec PA V2 mean: 55.4 cm/sec MV E/A: 1.2 PA mean P.4 mmHg Med Peak E' Vishnu: 13.8 cm/sec PA pr(Accel): 22.5 mmHg E/E' med: 4.4 Lat Peak E' Vishnu: 15.6 cm/sec E/E' lat: 3.9 E/e' average: 4.2 MV dec time: 0.23 sec SVLVOT): 62.6 ml Reading Physician:ROBERTO
[2019-08-10 15:33] LABS: HEMOLYSIS < 15 (0-50)
[2019-08-10 16:00] VITALS: BP 110/60; PULSE 87; RESP 20; TEMP 36.1; O2SAT 100
--- NOTE | 2019-08-10 19:27 | PM.PN.1 ---
Subjective Subjective Date Patient Seen: 08/10/19 Interval history: 23 y/o female admitted for persistant hypokalemia. She continues to have low potassium despite replacement. Patient is 31 weeks . No prior history of hypokalemia. Patient complains of shortness of breath and weakness. Her symptoms became progressive and thus she presented for evaluation. Exam Vital Signs (past 8 hours): - 08/10/19 16:00 Temperature 96.9 F L Pulse Rate 87 Respiratory Rate 20 Blood Pressure 110/60 Pulse Oximetry 100 Oxygen Delivery Method Room Air Oxygen Flow Rate 0 Narrative Exam Narrative: Pleasant female in NAD Lungs: clear to auscultation CV: RRR nl Sl S2 Abd: large uterus Ext: no edema Objective Labs Result Diagrams: 08/09/19 16:53 08/10/19 15:17 Labs: Laboratory Results - last 24 hr 08/09/19 08/09/19 08/09/19 14:21 21:00 21:00 Sodium 136 L Potassium 2.4 L* Chloride 108 H Carbon Dioxide 23 BUN 3 L Creatinine 0.52 Estimated GFR > 60.0 BUN/Creatinine Ratio 5.8 L Glucose 118 H Calcium 8.7 Magnesium Lactate Dehydrogenase Total Creatine Kinase 64 CK-MB (CK-2) TNP CK-MB (CK-2) Rel Index TNP Troponin I < 0.012 C-Reactive Protein Procalcitonin < 0.05 TSH COVID-19 PCR Cancelled 08/09/19 08/09/19 08/10/19 21:00 22:09 04:55 Sodium 139 Potassium 3.3 L Chloride 112 H Carbon Dioxide 21 L BUN 3 L Creatinine 0.47 L Estimated GFR > 60.0 BUN/Creatinine Ratio 6.4 Glucose 79 Calcium 8.4 Magnesium Lactate Dehydrogenase 343 Total Creatine Kinase CK-MB (CK-2) CK-MB (CK-2) Rel Index Troponin I C-Reactive Protein < 0.5 Procalcitonin TSH COVID-19 PCR Negative 08/10/19 08/10/19 08/10/19 04:55 04:55 15:17 Sodium Potassium 3.0 L Chloride Carbon Dioxide BUN Creatinine Estimated GFR BUN/Creatinine Ratio Glucose Calcium Magnesium 1.5 L Lactate Dehydrogenase Total Creatine Kinase CK-MB (CK-2) CK-MB (CK-2) Rel Index Troponin I C-Reactive Protein Procalcitonin TSH 2.42 COVID-19 PCR Assessment & Plan Assessment & Plan narrative: 1. 31 week gestation female with persistant hypokalemia -etiology not clear -Baarter's or gitleman's syndrome -Will need outpatient Nephrology work up -will replace potassium, replace magnesium 2. Shortness of breath -CT Angio negative -suspect low potassium caused respiratory muscle weakness with shortness of breath -await echo to r/o cardiomyopathy Plan: serial potassium, replace as needed. Nephrology consult tomorrow if still low Quality VTE Deep Vein Thrombosis/Pulmonary Embolism Present on Admission: No
[2019-08-10 20:00] VITALS: BP 108/59; PULSE 73; RESP 18; TEMP 36.4; O2SAT 99
[2019-08-10 21:13] LABS: BUN Creatinine Ratio 6.8 (6-22); Blood Urea Nitrogen 3 mg/dL (7-17); Calcium 8.8 mg/dL (8.4-10.2); Carbon Dioxide 17 mmol/L (22-32); Chloride 111 mmol/L (98-107); Estimated Glomerular Filt Rate > 60.0 mL/min (>60); Glucose 81 mg/dL (70-100); HEMOLYSIS < 15 (0-50); Potassium 3.2 mmol/L (3.4-5.1); Sodium 135 mmol/L (137-145)
--- NOTE | 2019-08-10 23:24 | PC.NURSE ---
Patient would like shelter case manager referral to [facility] the [facility] in [place], [place]. She is from [place] and that is where her family is, she plans to travel to [place] as soon as she gets out of the hospital and have her baby there.
[2019-08-10 23:43] VITALS: BP 109/74; PULSE 88; RESP 16; TEMP 36.4; O2SAT 100
[2019-08-11 04:33] VITALS: BP 97/51; PULSE 83; RESP 18; TEMP 37.2; O2SAT 99
[2019-08-11 05:25] LABS: BUN Creatinine Ratio 6.7 (6-22); Blood Urea Nitrogen 3 mg/dL (7-17); Calcium 8.5 mg/dL (8.4-10.2); Carbon Dioxide 19 mmol/L (22-32); Chloride 111 mmol/L (98-107); Estimated Glomerular Filt Rate > 60.0 mL/min (>60); Glucose 84 mg/dL (70-100); HEMOLYSIS < 15 (0-50); Potassium 3.1 mmol/L (3.4-5.1); Sodium 136 mmol/L (137-145)
[2019-08-11] MEDS: POTASSIUM CHLORIDE 80 MEQ in SODIUM CHLORIDE 0.9% 1,000 ML 130 ML IV (08:27)
[2019-08-11] MEDS: SODIUM CHLORIDE 0.9% FLUSH 10 ML IV (08:30)
[2019-08-11] MEDS: HEPARIN 5,000 UNIT/ML VIAL 5000 UNIT SUBCUT (08:34)
[2019-08-11 08:53] VITALS: BP 103/63; PULSE 85; RESP 15; TEMP 36.8; O2SAT 97
--- NOTE | 2019-08-11 10:27 | PC.NURSE ---
Addendum entered by Melanie Ortiz R.N. 08/11/19 14:41: Rec'd call from lab at 1439, repeat Potassium lab draw is 3.1. Spoke with Dr. Montanez via phone at 1340 and made aware of repeat result. Plan to redraw potassium lab draw after 80meq KCL infusion complete. pt had request to speak with Dr. Montanez today for update and would like to have her mother on speaker. Dr. Montanez aware. Addendum entered by Melanie Ortiz R.N. 08/11/19 14:27: pt OOB indep, has voided several times today, every couple hours good amount reported by pt. Also has had large formed BM today, pt states she usually has a BM once a week since and prior to , pt would have a BM every 2-3 days. At 1430, FLOR Esposito from Center in pt's room to perform NST. Addendum entered by Melanie Ortiz R.N. 08/11/19 11:33: Potassium infusion this AM started at 130ml/hr per order. Pt c/o burning to PIV site, rate decreased to 110mls/hr and arm wrapped in warm blanket. Upon reassessment, pt stated PIV site felt better. At 1110, PIV rate increased back to 130ml/hr per order. upon reassessment, PIV site okay, without issue. Addendum entered by Melanie Ortiz R.N. 08/11/19 11:26: Pt asking this RN to contact Dr. Quintanilla to relay information on a direct line for referral [phone] for Perinatologist at [facility]. Spoke with Dr. Quintanilla Nurse at office at 1120. Pt's mother Brooke had also just relayed information as well. Pt updated at 1125 that message above was relayed. Original Note: Day SHift- Spoke with Dr. Montanez at 1025. Recheck Potassium lab 1/2 way through current 80 meq KCL infusion. HOLD po Potassium at this time.
[2019-08-11 12:00] VITALS: BP 107/61; PULSE 99; RESP 16; TEMP 37.2; O2SAT 97
[2019-08-11 14:38] LABS: HEMOLYSIS < 15 (0-50)
[2019-08-11 14:40] LABS: Potassium 3.1 mmol/L (3.4-5.1)
--- NOTE | 2019-08-11 15:34 | PM.PN.1 ---
Subjective Subjective Date Patient Seen: 08/11/19 Time Patient Seen: 13:00 Interval history: This patient is a 23yo @31+4 by 1st trimester ultrasound, admitted to the hospital with SOB, fatigue, and unexplained hypokalemia concerning for underlying renal abnormality. The patient has undergone extensive potassium and magnesium repletion with minimal further improvement in her levels, thought her SOB and fatigue are somewhat improved. She denies obstetric complaints, with good movement, no contractions, no vaginal bleeding, and no loss of fluid. She is interested in moving back to [place] within the next 1-2 weeks for better access to childcare for her toddler. We discussed the danger of acute, severe hypokalemia including cardiac arrhythmia and , and that travel is not recommended at least until her current condition is stabilized and she is safe for discharge. Despite the risk of COVID19 exposure, we discussed that if she must travel, flying would be preferable given that the drive is [place] days through remote terrain. The patient vocalized understanding, but does not appear to grasp the potential for acute decline in clinical status. Exam Vital Signs (past 8 hours): - 08/11/19 08:53 08/11/19 12:00 Temperature 98.2 F 98.9 F Pulse Rate 85 99 H Respiratory Rate 15 16 Blood Pressure 103/63 107/61 Pulse Oximetry 97 97 Oxygen Delivery Method Room Air Oxygen Flow Rate 0 Narrative Exam Narrative: occasionally audibly struggling for breath. Const General: cooperative and comfortable Other: Occasionally breathless at the end of long sentences. Resp Effort & Inspection: normal respiratory effort Auscultation: clear to auscultation bilaterally Cardio Rate: regular rate Rhythm: regular rhythm GI Palpation: soft (appropriately gravid) and No tender Other: FHR 152 on doppler. NST performed after exam, cat 1, baseline 130s, reactive. No contractions. Objective Labs Result Diagrams: 08/09/19 16:53 08/11/19 13:04 Labs: Laboratory Results - last 24 hr 08/10/19 08/10/19 08/11/19 15:17 20:52 04:47 Sodium 135 L 136 L Potassium 3.0 L 3.2 L 3.1 L Chloride 111 H 111 H Carbon Dioxide 17 L 19 L BUN 3 L 3 L Creatinine 0.44 L 0.45 L Estimated GFR > 60.0 > 60.0 BUN/Creatinine Ratio 6.8 6.7 Glucose 81 84 Calcium 8.8 8.5 08/11/19 13:04 Sodium Potassium 3.1 L Chloride Carbon Dioxide BUN Creatinine Estimated GFR BUN/Creatinine Ratio Glucose Calcium Assessment & Plan Assessment and plan (1) related conditions, unspecified, third trimester: Problem details: This patient has no obstetric complaints, with reassuring status on testing today. Fetus remains LGA despite dating by 8 week US c/w LMP, and had concern for an amniotic band on BPP ultrasound yesterday. The patient has been referred to [facility] as an outpatient for this, but will be referred to [facility] as an inpatient if transferred for management of her hypokalemia. - Daily NSTs while inpatient - [facility] referral - OB will continue to follow closely Current visit: Yes Status: Acute (2) Dyspnea: Problem details: Appreciate management of the patient's hypokalemia and dyspnea by medicine service. Will continue to closely follow and anticipate renal recs. Qualifiers: Dyspnea type: unspecified Qualified Code(s): R06.00 - Dyspnea, unspecified Current visit: Yes Status: Acute Quality VTE Deep Vein Thrombosis/Pulmonary Embolism Present on Admission: No
[2019-08-11 15:36] VITALS: BP 121/73; PULSE 104; RESP 18; TEMP 36.7; O2SAT 100
--- NOTE | 2019-08-11 16:00 | PM.PN.1 ---
Subjective Subjective Date Patient Seen: 08/11/19 Interval history: 23y/o 31 week gestation female admitted for persistant hypokalemia. Patient has been on continous potassium replacement ( 10 meq/hour) but has only been able to have her potassium increast to 3.2 max. She is currently receiving a K-rider. She was found to have low magnesium of 1.5 and received a Magnesium rider yesterday. She continues to have large volume urine output. She is not short of breath. she has been in bed most of the day. Exam Vital Signs (past 8 hours): - 08/11/19 08:53 08/11/19 12:00 08/11/19 15:36 Temperature 98.2 F 98.9 F 98.0 F Pulse Rate 85 99 H 104 H Respiratory Rate 15 16 18 Blood Pressure 103/63 107/61 121/73 Pulse Oximetry 97 97 100 Oxygen Delivery Method Room Air Oxygen Flow Rate 0 Narrative Exam Narrative: Pleasant young female in no acute distress Lungs: clear to auscultation CV: RRR nl Sl S2 Abd; gravid, soft, non tender Ext: trace edema Objective Labs Result Diagrams: 08/09/19 16:53 08/11/19 13:04 Labs: Laboratory Results - last 24 hr 08/10/19 08/11/19 08/11/19 20:52 04:47 13:04 Sodium 135 L 136 L Potassium 3.2 L 3.1 L 3.1 L Chloride 111 H 111 H Carbon Dioxide 17 L 19 L BUN 3 L 3 L Creatinine 0.44 L 0.45 L Estimated GFR > 60.0 > 60.0 BUN/Creatinine Ratio 6.8 6.7 Glucose 81 84 Calcium 8.8 8.5 Assessment & Plan Assessment & Plan narrative: 23 y/o female 31 weesk gestation admitted for persistant hypokalemia -continue potassium replacement -recheck magnesium -received 2 grams Magnesium yesterday - consider 24 hour potassium to check for renal excretion -may need work up for hyperaldosteronism, given persistant potassium losses -consider spironolactone -plans underway to transfer to for M consult and Nephrology/Endocrine consultation Quality VTE Deep Vein Thrombosis/Pulmonary Embolism Present on Admission: No
[2019-08-11 17:06] LABS: Osmolality Urine 226 mOsmol/kg (.)
[2019-08-11 17:06] LABS: Osmolality, Serum 282 mOsmol/kg (275-295)
[2019-08-11 17:23] LABS: HEMOLYSIS < 15 (0-50); Magnesium 1.5 mg/dL (1.6-2.3); Potassium 3.6 mmol/L (3.4-5.1)
--- NOTE | 2019-08-11 17:30 | P.DS_ITS ---
History of Present Illness History of Present Illness Date Patient Seen: 08/11/19 Chief complaint: Sent By Doctor To get Covid Testing. Narrative: his is a 23 year old female who is [address] weeks [address] Quintanilla office today with Shortness of Breath so was sent to the ED for a workup and Covid testing. The rapid Covid test was negative but the EKG showed ST changes(depressed in the lateral leads) that prompted a K level that came back low at 2.6, so she was given 40 meq of PO Kcl and 20 meq of IV Kcl, with a follow up level of 2.4. There is no known cause of the low K as she has not had any GI symptoms or use of diuretics. An NST was done in the ED that was repo rtedly negative. She has had no contractions today. Dr. Kiran has been following her from the ED tonight and has requested a medical consult for management and workup of her Hypokalemia. She describes shortness of breath progressively worse for the past 30 days until the point where she was unable to do simple mobility developer today without having to rest and catch her breath. Sitting or resting relieves the shortness of breath. She had a history of tachycardia/mild Mitral Regurgitation and used to be on Metoprolol for that until earlier in this when she stopped taking it. She also describes an excessive thirst to the point of drinking 10 large bottles of water every day and having to urinate every 30 minutes as a result. She feels like she gets dehydrated if she doesn't drink that much. This habit was also present with a prior recently. She has never been tested for Diabetes Insipidus or Bartters syndrome that she is aware of. Discharge Providers Provider Date of admission: 08/09/19 23:41 Discharge Date: 08/11/19 Primary care physician: Patrizia Quintanilla MD Discharge provider: China Montanez MD Summary Hospital Course Discharge Diagnosis: 1. hypokalemia-etiology not clear 2. 31 weeks gestation 3. Shortness of breath, improved Hospital Course: Patient was admitted to the hospital for shortness of breath, weakness, and hypokalemia. She was found to have a potassium of 2.[address]-T wave depressions. Patient was given over 100 meq of KCL but still remained with a potassium of 3.1. She is currently recieved 80 meq of Potassium today and now with a potassi um of 3.1. She was found to have a low magnesium of 1.5 and given 2 grams of magnesium. Her shortness of breath improved. She was tested for Covid-19 which was negative. As she had persistant hypokalemia despite adequate replacement, arrangements were made to transfer to [facility] at for further treatment and evaluation. Patient will be seen by nephrology for further evaluation. Status at Discharge Cognitive/behavioral status at discharge: oriented Functional status at discharge: independent ambulation Overall status at discharge: patient is back to baseline Time Spent with Patient Time spent: Less than 30 minutes Exam Vital Signs (past 8 hours): - 08/11/19 12:00 08/11/19 15:36 Temperature 98.9 F 98.0 F Pulse Rate 99 H 104 H Respiratory Rate 16 18 Blood Pressure 107/61 121/73 Pulse Oximetry 97 100 Oxygen Delivery Method Room Air Oxygen Flow Rate 0 Narrative Exam Narrative: Pleasant Young female Lungs: clear to auscultation CV: RRR nl Sl S2 Abd; gravid, soft/ non tender Ext: no edema Objective Labs Result Diagrams: 08/09/19 16:53 08/11/19 17:03 Labs: Laboratory Results - last 24 hr 08/10/19 08/10/19 08/10/19 03:10 04:55 20:52 Sodium 135 L Potassium 3.2 L Chloride 111 H Carbon Dioxide 17 L BUN 3 L Creatinine 0.44 L Estimated GFR > 60.0 BUN/Creatinine Ratio 6.8 Glucose 81 Serum Osmolality 282 Calcium 8.8 Magnesium Urine Osmolality 226 08/11/19 08/11/19 08/11/19 04:47 13:04 17:03 Sodium 136 L Potassium 3.1 L 3.1 L 3.6 Chloride 111 H Carbon Dioxide 19 L BUN 3 L Creatinine 0.45 L Estimated GFR > 60.0 BUN/Creatinine Ratio 6.7 Glucose 84 Serum Osmolality Calcium 8.5 Magnesium 1.5 L Urine Osmolality Discharge Plan Discharge Plan Patient Disposition: [facility] Other facility: [facility] Discharge orders & Medications Prescriptions: No Action (DME) [employer] breast Pump and Supplies See Rx Instructions .ROUTE .MEDSUPPLY Qty: 1 RF: 0 comb no.42-folic acid 2 tab-cap PO BEDTIME RF: 0 Follow up/Referrals: Hernandez,MD Patrizia [Primary Care Provider] - (You have an appointment with Dr Quintanilla on 08/13/2019 at 10:45 am.) Discharge Health Status Multidrug resistant organism: No MDRO Diet/Activity/Treatments Diet: Diet as Tolerated Liquid consistency: Normal/Thin Food texture: Regular Discharge Data Primary Care Provider: Patrizia Quintanilla Quality VTE Deep Vein Thrombosis/Pulmonary Embolism Present on Admission: No
[2019-08-11] MEDS: POTASSIUM CHLORIDE 20 MEQ TAB 40 MEQ PO (17:42)
[2019-08-11 17:54] LABS: Potassium Urine Random 21.2 mmol/L
--- NOTE | 2019-08-11 18:07 | PC.NURSE ---
1800- Report given to transport nurse. Patient alert oriented and all of her belongings went with her in the ambulance. Patient IV left heplocked. Telemetry removed prior to discharge. Report called to JORGE RN at [facility]. Stable at time of discharge.
== END 2019-08-11 18:06 | disposition short-term general hospital (02) | DRG 833 ==
LOC: ED 23:29 → AC 08-10 09:44
PROVIDERS: Emergency Medicine; Family Medicine; Internal Medicine; Emergency Provider Nurse Practitioner Family; PCP Obstetrics & Gynecology; Referring Provider Obstetrics & Gynecology
DX: O26.893 Other specified pregnancy related conditions, third trimester (principal); E87.6 Hypokalemia; R06.02 Shortness of breath; Z3A.31 31 weeks gestation of pregnancy; Z03.818 Encounter for observation for suspected exposure to other biological agents ruled out
CPT/HCPCS: 36415; 71045; 71275; 76819; 80048; 80053; 81003; 81015; 82550; 83615; 83690; 83735; 83880; 83930; 83935; 84132; 84133; 84145; 84443; 84484; 85025; 85610; 85730; 86140; 87635; 93005; 93306; 96365; 96366; 99231; 99232; 99285; J1644; J3480